=== PATIENT | male | born 1950 | race Caucasian/White ===

== ENCOUNTER 2020-03-31 14:46 | Emergency (ER) | payer OTHER, SELFPAY ==
[2020-03-31] VITALS (10 sets, daily range): BP systolic 148–208; BP diastolic 69–106; PULSE 45–61; RESP 14–24; TEMP 36.7; O2SAT 97–99; BMI 35.7
--- NOTE | 2020-03-31 15:15 | DI.CT.S_ITS ---
PROCEDURE: CT HEAD/BRAIN WO CON INDICATIONS: htnsive, headache TECHNIQUE: Noncontrast 4.5 mm thick angled axial sections acquired from the foramen magnum to the vertex, with coronal and sagittal reformats. For radiation dose reduction, the following was used: automated exposure control, adjustment of mA and/or kV according to patient size. COMPARISON: None. FINDINGS: Image quality: Excellent. CSF spaces: Basal cisterns are patent. No extra-axial fluid collections. The ventricles are symmetric in size and shape. Brain: No intracranial bleeds or masses. There is cerebral volume loss for age, with resultant ventricular and sulcal prominence. There are periventricular and deep white matter chronic small vessel ischemic changes. There is intracranial internal carotid artery atherosclerosis. Skull and face: Calvarium and visualized facial bones appear intact, without suspicious lesions. Sinuses: Complete opacification of the left maxillary sinus. Visualized sinuses and mastoids are otherwise clear. IMPRESSION: 1. No acute process. 2. Volume loss and small vessel ischemic disease. 3. Left maxillary sinus disease. Dictated by: Дмитрий Meek M.D. on 03/31/2020 at 15:49 Approved by: Дмитрий Meek M.D. on 03/31/2020 at 15:49
--- NOTE | 2020-03-31 15:15 | DI.RAD.S_ITS ---
PROCEDURE: XR CHEST 1V INDICATIONS: chest pain, htn TECHNIQUE: One view of the chest was acquired. COMPARISON: None. FINDINGS: Surgical changes and devices: None. Lungs and pleura: Lungs are clear. No pleural effusions or pneumothorax. Mediastinum: Mediastinal contours appear normal. Heart size is normal. Bones and chest wall: No suspicious bony lesions. Overlying soft tissues appear unremarkable. IMPRESSION: No acute process. Dictated by: Дмитрий Meek M.D. on 03/31/2020 at 15:46 Approved by: Дмитрий Meek M.D. on 03/31/2020 at 15:46
[2020-03-31] MEDS: SODIUM CHLORIDE 0.9% 1,000 ML 150 ML IV (15:21)
[2020-03-31 15:26] LABS: Add Manual Diff / Slide Review NO; Basophils Absolute Auto 100 /uL (0-100); Eosinophils Absolute Auto 400 /uL (0-450); Eosinophils Percent Auto 3.7 % (2-4); Hematocrit 48.4 % (41-53); Hemoglobin 16.9 g/dL (13.5-17.5); Lymphocytes Absolute Auto 2900 /uL (1100-4500); Lymphocytes Percent Auto 26.6 % (25-40); Mean Corpuscular Hemoglobin 33.3 PG (26-34); Mean Corpuscular Volume 95.1 fL (80-100); Monocytes Absolute Auto 1100 /uL (0-900); Monocytes Percent Auto 10.2 % (3-14); Neutrophils Absolute Auto 6300 /uL (1500-7000); Neutrophils Percent Auto 58.5 % (50-75); Platelet Count 216 X10^3/uL (150-400); Prothrombin Time 11.1 SECONDS (10.1-12.7); Red Blood Cell Count 5.09 X10^6/uL (4.5-5.9); Red Cell Distribution Width 13.2 % (11.6-14.8); White Blood Cell Count 10.8 X10^3/uL (4.5-11.0)
[2020-03-31 15:29] LABS: PTT Partial Thromboplastin Tim 31 SECONDS (26.4-36.2)
[2020-03-31 15:31] LABS: Alanine Aminotransferase 104 IU/L (<50); Albumin 4.5 g/dL (3.5-5.0); Albumin Globulin Ratio 1.3 (1.0-2.8); Alkaline Phosphatase 67 U/L (38-126); Aspartate Aminotransferase 68 IU/L (17-59); BUN Creatinine Ratio 17.1 (6-22); Bilirubin Total 1.1 mg/dL (0.2-1.3); Blood Urea Nitrogen 18 mg/dL (9-20); Calcium 9.6 mg/dL (8.4-10.2); Carbon Dioxide 33 mmol/L (22-32); Chloride 99 mmol/L (98-107); Creatine Kinase 63 U/L (55-170); Estimated Glomerular Filt Rate > 60.0 mL/min (>60); Globulin 3.4 g/dL (1.7-4.1); Glucose 145 mg/dL (80-110); Lipase 100 U/L (23-300); Potassium 4.3 mmol/L (3.4-5.1); Sodium 137 mmol/L (137-145); Total Protein 7.9 g/dL (6.3-8.2)
--- NOTE | 2020-03-31 15:31 | ED.GENADULT ---
HPI - General Adult <BENITEZ Gonzales - Last Filed: 03/31/20 18:29> General Chief complaint: Hypertension Stated complaint: elevated BP Time Seen by Provider: 03/31/20 14:58 Source: patient Mode of arrival: Ambulatory Limitations: no limitations History of Present Illness HPI narrative: The patient is a 69-year-old male current smoker with history of hypertension and prediabetes who presents with a chief complaint of elevated blood pressure. He states he has a history of high blood pressure, which checking his blood pressure at his pharmacy and it was noted to be elevated. Then he went to the walk-in clinic with a checked in as well and he was sent to the emergency department due to elevated blood pressure. He denies any chest pain or shortness of breath. He does endorse headache, but states that might be is chronic headache. He states he is very worried about this. He states he takes multiple Tylenol per day for his headache. He has seen pain management prior. He does states that he occasionally has ?twinges of chest pain, but does not have any today, and walked up 6 flights of stairs earlier today with no twinges of chest pain. He states he has had these twinges of chest pain for over 40 years. He denies any falls or trauma. He states that he is taking his medications per his primary care provider's instructions. He states he is taking losartan, nadolol, and triamterene hydrochlorothiazide. Related Data Home Medications Medication Instructions Recorded Confirmed diphenhydramine HCl 25 mg capsule 25 mg PO BEDTIME PRN 06/07/18 06/07/18 doxylamine succinate 25 mg tablet 25 mg PO BEDTIME PRN 06/07/18 06/07/18 losartan 50 mg tablet 50 mg PO DAILY 06/07/18 06/07/18 nadolol 20 mg tablet 20 mg PO DAILY 06/07/18 06/07/18 triamterene 37.5 1 tab PO DAILY 06/07/18 06/07/18 mg-hydrochlorothiazide 25 mg tablet Allergies Allergy/AdvReac Type Severity Reaction Status Date / Time No Known Drug Allergies Allergy Verified 03/31/20 14:55 Review of Systems <BENITEZ Gonzales - Last Filed: 03/31/20 18:29> Review of Systems Narrative: GENERAL: Denies chills, fatigue, malaise, fever, sweats. HEENT: Denies sinus pain, ear pain, sore throat, difficulty swallowing, dizziness. RESPIRATORY: Denies dyspnea, cough, wheezing, hemoptysis, sputum. CARDIOVASCULAR: Denies chest pain, palpitations, orthopnea, edema, GASTROINTESTINAL: Denies nausea, vomiting, abdominal pain, diarrhea, constipation, melena. : Denies dysuria, frequency, incontinence, hematuria, urinary retention. MUSCULOSKELETAL: denies weakness, joint pain, or bony pain SKIN: Denies rash, skin lesions, or other NEUROLOGIC: See HPI PSYCHIATRIC: No concerning psychosocial issues. 12 point review of systems is negative except for those stated above Patient History <PERRI Gonzales - Last Filed: 03/31/20 18:29> Social History Smoking Status: Current every day smoker Smoking Status: Current every day smoker alcohol intake frequency: a few times a month Substance Use Type: marijuana Exam <[facility] - Last Filed: 03/31/20 18:29> Narrative Exam Narrative: GENERAL: This is a well-nourished, well-developed patient, in no acute distress HEAD: Atraumatic. Normocephalic. No temporal or scalp tenderness. EYES: Pupils equal round and reactive. Extraocular motions intact. No scleral icterus. No injection or drainage. ENT: Nose without bleeding, purulent drainage or septal hematoma. Throat without erythema, tonsillar hypertrophy or exudate. Uvula midline. Airway patent. NECK: Trachea midline. No JVD or lymphadenopathy. Supple, nontender, no meningeal signs. CARDIOVASCULAR: Regular rate and rhythm RESPIRATORY: Clear to auscultation. Breath sounds equal bilaterally. No wheezes, rales, or rhonchi. No cough. No increased respiratory effort for no accessory muscle use. GASTROINTESTINAL: Abdomen soft, non-tender, nondistended. No hepato-splenomegaly, or palpable masses. No guarding. EXTREMITIES: No clubbing, cyanosis, or edema. No joint tenderness, effusion, or edema noted. BACK: Nontender without deformity or crepitance. No flank tenderness. NEURO: AOx3. Interactive. Age appropriate. Using all extremities equally. No gross cranial nerve deficit. SKIN: No rash or erythema on visible skin Initial Vital Signs Initial Vital Signs: Vital Signs Temperature 98.0 F 03/31/20 14:50 Pulse Rate 59 L 03/31/20 14:50 Respiratory Rate 15 03/31/20 14:50 Blood Pressure 208/106 H 03/31/20 14:50 Pulse Oximetry 99 03/31/20 14:50 <Miryam Cárdenas DO - Last Filed: 04/01/20 17:08> Initial Vital Signs Initial Vital Signs: Vital Signs Temperature 98.0 F 03/31/20 14:50 Pulse Rate 59 L 03/31/20 14:50 Respiratory Rate 15 03/31/20 14:50 Blood Pressure 208/106 H 03/31/20 14:50 Pulse Oximetry 99 03/31/20 14:50 Scores <BENITEZ Gonzales - Last Filed: 03/31/20 18:29> GCS [place] coma scale eye opening: Spontaneous [place] coma scale verbal response: Orientated [place] coma scale motor response: Obey commands Scooter coma scale total score: 15 Course <BENITEZ Gonzales - Last Filed: 03/31/20 18:29> Orders Ordered: Discontinued Medications Sodium Chloride (Normal Saline 0.9%) 1,000 mls @ 150 mls/hr IV CONT KENYATTA Last Infusion: 03/31/20 19:23 Dose: 0 mls/hr Documented by: Admin: 03/31/20 15:21 Dose: 150 mls/hr Documented by: MMINOR Vital Signs Vital signs: Vital Signs - 8 hr 03/31/20 14:50 03/31/20 14:53 03/31/20 15:00 Temperature 98.0 F Pulse Rate 59 L 61 56 L Respiratory Rate 15 14 24 Blood Pressure 208/106 H Pulse Oximetry 99 99 98 03/31/20 15:01 03/31/20 15:37 03/31/20 15:48 Temperature Pulse Rate 52 L 50 L 49 L Respiratory Rate 22 17 Blood Pressure 208/94 H 168/79 H Pulse Oximetry 98 98 03/31/20 16:00 03/31/20 16:01 03/31/20 16:30 Temperature Pulse Rate 47 L 48 L 46 L Respiratory Rate 15 18 16 Blood Pressure 151/78 H 149/72 H Pulse Oximetry 98 98 97 03/31/20 17:00 Temperature Pulse Rate 45 L Respiratory Rate 15 Blood Pressure 148/69 H Pulse Oximetry 97 <Miryam Cárdenas DO - Last Filed: 04/01/20 17:08> Orders Ordered: Discontinued Medications Sodium Chloride (Normal Saline 0.9%) 1,000 mls @ 150 mls/hr IV CONT KENYATTA Last Infusion: 03/31/20 19:23 Dose: 0 mls/hr Documented by: Admin: 03/31/20 15:21 Dose: 150 mls/hr Documented by: MMINOR Vital Signs Vital signs: Vital Signs - 8 hr 03/31/20 14:50 03/31/20 14:53 03/31/20 15:00 Temperature 98.0 F Pulse Rate 59 L 61 56 L Respiratory Rate 15 14 24 Blood Pressure 208/106 H Pulse Oximetry 99 99 98 03/31/20 15:01 03/31/20 15:37 03/31/20 15:48 Temperature Pulse Rate 52 L 50 L 49 L Respiratory Rate 22 17 Blood Pressure 208/94 H 168/79 H Pulse Oximetry 98 98 03/31/20 16:00 03/31/20 16:01 03/31/20 16:30 Temperature Pulse Rate 47 L 48 L 46 L Respiratory Rate 15 18 16 Blood Pressure 151/78 H 149/72 H Pulse Oximetry 98 98 97 03/31/20 17:00 Temperature Pulse Rate 45 L Respiratory Rate 15 Blood Pressure 148/69 H Pulse Oximetry 97 Medical Decision Making <DILLAN Gonzales-BC - Last Filed: 03/31/20 18:29> Lab Data Lab results reviewed: Yes I reviewed the patient's lab results. Result diagrams: 03/31/20 14:54 03/31/20 14:54 Labs: Lab Results 03/31/20 03/31/20 03/31/20 Range/Units 14:54 14:54 14:54 WBC 10.8 (4.5-11.0) X10^3/uL RBC 5.09 (4.5-5.9) X10^6/uL Hgb 16.9 (13.5-17.5) g/dL Hct 48.4 (41-53) % MCV 95.1 (80-100) fL MCH 33.3 (26-34) PG MCHC 35.0 (30-36) % RDW 13.2 (11.6-14.8) % Plt Count 216 (150-400) X10^3/uL Neut % (Auto) 58.5 (50-75) % Lymph % (Auto) 26.6 (25-40) % [place] % (Auto) 10.2 (3-14) % Eos % (Auto) 3.7 (2-4) % Baso % (Auto) 1.0 (0-2) % Neut # (Auto) 6300 (7104-9323) /uL Lymph # (Auto) 2900 (8351-3963) /uL [place] # (Auto) 1100 H (0-900) /uL Eos # (Auto) 400 (0-450) /uL Baso # (Auto) 100 (0-100) /uL PT 11.1 (10.1-12.7) SECONDS INR 1.0 (0.9-1.3) APTT 31 (26.4-36.2) SECONDS Sodium 137 (137-145) mmol/L Potassium 4.3 (3.4-5.1) mmol/L Chloride 99 (98-107) mmol/L Carbon Dioxide 33 H (22-32) mmol/L BUN 18 (9-20) mg/dL Creatinine 1.05 (0.66-1.25) mg/dL Estimated GFR > 60.0 (>60) mL/min BUN/Creatinine Ratio 17.1 (6-22) Glucose 145 H (80-110) mg/dL Calcium 9.6 (8.4-10.2) mg/dL Total Bilirubin 1.1 (0.2-1.3) mg/dL AST 68 H (17-59) IU/L ALT 104 H (<50) IU/L Alkaline Phosphatase 67 (38-126) U/L Total Creatine Kinase 63 (55-170) U/L CK-MB (CK-2) TNP CK-MB (CK-2) Rel Index TNP Troponin I < 0.012 (0.01-0.034) ng/mL NT-Pro-B Natriuret Pep 64 (<125) pg/mL Total Protein 7.9 (6.3-8.2) g/dL Albumin 4.5 (3.5-5.0) g/dL Globulin 3.4 (1.7-4.1) g/dL Albumin/Globulin Ratio 1.3 (1.0-2.8) Lipase 100 (23-300) U/L Imaging Data CT scan - head: Radiologist's Impression: [address] [place] [id number] Scan Report Signed Patient: Venancio Rivas [facility]#: [id number] : 9Acct:[id number] Age/Sex: 69 / MDate of Service: 03/31/20 Loc: ED Accession Number: [id number] Procedure: CT head/brain wo con Ordering Provider: Suyapa RedP-BC PROCEDURE: CT HEAD/BRAIN WO CON INDICATIONS: htnsive, headache TECHNIQUE: Noncontrast 4.5 mm thick angled axial sections acquired from the foramen magnum to the vertex, with coronal and sagittal reformats. For radiation dose reduction, the following was used: automated exposure control, adjustment of mA and/or kV according to patient size. COMPARISON: None. FINDINGS: Image quality: Excellent. CSF spaces: Basal cisterns are patent. No extra-axial fluid collections. The ventricles are symmetric in size and shape. Brain: No intracranial bleeds or masses. There is cerebral volume loss for age, with resultant ventricular and sulcal prominence. There are periventricular and deep white matter chronic small vessel ischemic changes. There is intracranial internal carotid artery atherosclerosis. Skull and face: Calvarium and visualized facial bones appear intact, without suspicious lesions. Sinuses: Complete opacification of the left maxillary sinus. Visualized sinuses and mastoids are otherwise clear. IMPRESSION: 1. No acute process. 2. Volume loss and small vessel ischemic disease. 3. Left maxillary sinus disease. Dictated by: Дмитрий Meek M.D. on 03/31/2020 at 15:49 Approved by: Дмитрий Meek M.D. on 03/31/2020 at 15:49 Chest x-ray: Radiologist's Impression: [address] [place] [id number] XRay Report Signed Patient: Venancio Rivas [facility]#: [id number] : 9Acct:[id number] Age/Sex: 69 / MDate of Service: 03/31/20 Loc: ED Accession Number: [id number] Procedure: XR chest 1V Ordering Provider: Suyapa RedP-[facility] PROCEDURE: XR CHEST 1V INDICATIONS: chest pain, htn TECHNIQUE: One view of the chest was acquired. COMPARISON: None. FINDINGS: Surgical changes and devices: None. Lungs and pleura: Lungs are clear. No pleural effusions or pneumothorax. Mediastinum: Mediastinal contours appear normal. Heart size is normal. Bones and chest wall: No suspicious bony lesions. Overlying soft tissues appear unremarkable. IMPRESSION: No acute process. Dictated by: Дмитрий Meek M.D. on 03/31/2020 at 15:46 Approved by: Дмитрий Meek M.D. on 03/31/2020 at 15:46 [facility] Narrative Medical decision making narrative: The patient is a 69-year-old male current smoker presents with a chief complaint of hypertension with systolic over 200. He does have a headache, though notes that he has chronic headaches and this is not unusual for him. However given his blood pressure over 200, head CT was taken to rule out acute intracranial bleed. This came back negative. The patient has a negative troponin, normal renal function. He feels fine and appears well and nontoxic. His blood pressure normalized during his emergency department stay. His wonders if it is because he is eating increasing salty foods including pickles. He is requesting to go home. I discussed at length continuing his antihypertensive regimen set of eyes primary care provider as well as close follow-up with PCP. Discussed at length coming back to ER for acute concerns including chest pain shortness of breath, concern of heart attack or stroke. Patient have no questions upon discharge and state understanding of return precautions as well as follow-up care. <Miryam Cárdenas, DO - Last Filed: 04/01/20 17:08> Lab Data Labs: Lab Results 03/31/20 03/31/20 03/31/20 Range/Units 14:54 14:54 14:54 WBC 10.8 (4.5-11.0) X10^3/uL RBC 5.09 (4.5-5.9) X10^6/uL Hgb 16.9 (13.5-17.5) g/dL Hct 48.4 (41-53) % MCV 95.1 (80-100) fL MCH 33.3 (26-34) PG MCHC 35.0 (30-36) % RDW 13.2 (11.6-14.8) % Plt Count 216 (150-400) X10^3/uL Neut % (Auto) 58.5 (50-75) % Lymph % (Auto) 26.6 (25-40) % [place] % (Auto) 10.2 (3-14) % Eos % (Auto) 3.7 (2-4) % Baso % (Auto) 1.0 (0-2) % Neut # (Auto) 6300 (9876-6364) /uL Lymph # (Auto) 2900 (6118-4926) /uL [place] # (Auto) 1100 H (0-900) /uL Eos # (Auto) 400 (0-450) /uL Baso # (Auto) 100 (0-100) /uL PT 11.1 (10.1-12.7) SECONDS INR 1.0 (0.9-1.3) APTT 31 (26.4-36.2) SECONDS Sodium 137 (137-145) mmol/L Potassium 4.3 (3.4-5.1) mmol/L Chloride 99 (98-107) mmol/L Carbon Dioxide 33 H (22-32) mmol/L BUN 18 (9-20) mg/dL Creatinine 1.05 (0.66-1.25) mg/dL Estimated GFR > 60.0 (>60) mL/min BUN/Creatinine Ratio 17.1 (6-22) Glucose 145 H (80-110) mg/dL Calcium 9.6 (8.4-10.2) mg/dL Total Bilirubin 1.1 (0.2-1.3) mg/dL AST 68 H (17-59) IU/L ALT 104 H (<50) IU/L Alkaline Phosphatase 67 (38-126) U/L Total Creatine Kinase 63 (55-170) U/L CK-MB (CK-2) TNP CK-MB (CK-2) Rel Index TNP Troponin I < 0.012 (0.01-0.034) ng/mL NT-Pro-B Natriuret Pep 64 (<125) pg/mL Total Protein 7.9 (6.3-8.2) g/dL Albumin 4.5 (3.5-5.0) g/dL Globulin 3.4 (1.7-4.1) g/dL Albumin/Globulin Ratio 1.3 (1.0-2.8) Lipase 100 (23-300) U/L Discharge Plan Departure Patient Disposition: Home Clinical Impression: Hypertension Qualifiers: Hypertension type: unspecified Qualified Code(s): I10 - Essential (primary) hypertension Discharge Date/Time: 03/31/20 17:32 Instructions: DASH Diet For a Healthy Blood Pressure, DI for High Blood Pressure Activity Restrictions/Additional Instructions: Thank you for trusting us with your care today. As discussed, your blood pressure came down in the emergency department. Please follow-up with primary care provider. I encouraged monitoring your salt intake over the next few days. Please come back to the emergency department for any acute concerns such as concern of heart attack or stroke. You are doing great work with your blood sugars! Keep up the great work. Today your blood sugar was 145, but this was not fasting. Prescriptions: No Action nadolol 20 mg tablet 20 mg PO DAILY RF: 0 losartan 50 mg tablet 50 mg PO DAILY RF: 0 triamterene-hydrochlorothiazid 37.5-25 mg tablet 1 tab PO DAILY RF: 0 doxylamine succinate 25 mg tablet 25 mg PO BEDTIME PRNRF: 0 diphenhydramine HCl 25 mg capsule 25 mg PO BEDTIME PRNRF: 0 Referrals: Homer Cross MD [Non-Staff] - <Miryam Cárdenas DO - Last Filed: 04/01/20 17:08> Cosign ED Attending Cadyature Attestation: I was immediately available in the department for consultation. Documentation has been reviewed. I agree with assessment and plan.
[2020-03-31 15:36] LABS: HEMOLYSIS 90 (0-50)
[2020-03-31 15:43] LABS: NT-proBNP (BNP-Adult 18+) 64 pg/mL (<125); Troponin I < 0.012 ng/mL (0.01-0.034)
== END 2020-03-31 17:32 | disposition home or self-care (01) ==
PROVIDERS: Emergency Provider Nurse Practitioner Family
DX: I10 Essential (primary) hypertension (principal); R07.9 Chest pain, unspecified; R51.9 Headache, unspecified
CPT/HCPCS: 36415; 70450; 71045; 80053; 82550; 83690; 83880; 84484; 85025; 85610; 85730; 93005; 96360; 96361; 99284

== ENCOUNTER 2023-08-06 22:50 | Emergency (ER) | payer OTHER, SELFPAY ==
[2023-08-06 22:56] VITALS: BP 140/67; PULSE 61; RESP 16; TEMP 36.1; O2SAT 96; BMI 33.9
--- NOTE | 2023-08-06 23:10 | DI.RAD.S_ITS ---
PROCEDURE: XR LUMBAR SPINE 2-3V INDICATIONS: fall with lumbar pain TECHNIQUE: 3 views of the lumbar spine were acquired. COMPARISON: None. FINDINGS: Bones: 5 [id number] vertebrae are present. Trace retrolisthesis L2-3, L3-4, and L5-S1. There is severe L5-S1 disc height loss and moderate multilevel disc height loss elsewhere. There are flowing bridging anterior osteophytes from the lower thoracic spine to L3. Bridging osteophytes throughout the lower thoracic and upper lumbar spinous processes.. No acute vertebral body compression fractures. No suspicious bony lesions. Degenerative mixed cystic and sclerotic changes at the pubic symphysis. Soft tissues: Overlying bowel gas pattern is normal. No suspicious soft tissue calcifications. IMPRESSION: No acute vertebral body fracture. Osteophytosis and partial ankylosis in the lower thoracic and upper lumbar spine. Degenerative disc height loss at L5-S1. Dictated by: Samara Shelton M.D. on 08/07/2023 at 0:46 Approved by: Samara Shelton M.D. on 08/07/2023 at 0:49
[2023-08-06 23:11] VITALS: PULSE 60; O2SAT 95
[2023-08-06 23:30] VITALS: PULSE 59; O2SAT 96
--- NOTE | 2023-08-06 23:53 | ED_ITS ---
HPI - Back Pain/Injury General Chief Complaint: Back Pain/Injury Stated Complaint: glf Time Seen by Provider: 08/06/23 23:01 Source: patient and EMS History of Present Illness HPI Narrative: Patient is a 72-year-old male history of hyperlipidemia, BPH, hypertension presenting today with back pain after injury. He reports that he was at a grandchild's recital he was wearing Crocs when he slipped on coffee falling backwards on his back. He did not hit his head or lose consciousness. He is having ongoing lower back pain. He was able to get himself up off the floor. At which time he proceeded to sit for 1 hour through the consult. He was able to walk 2 blocks to the car but it was very slow and painful. He has no numbness or tingling legs. Who apparently was in such severe pain when EMS arrived that he got ketamine and fentanyl. He now says that he is feeling better but is quite afraid to move. Pain is worse on the right than the left Related Data Home Medications Medication Instructions Recorded Confirmed allopurinol 100 mg tablet 100 mg PO DAILY 04/03/23 06/30/23 finasteride 5 mg tablet 5 mg PO DAILY 04/03/23 06/30/23 rosuvastatin 20 mg tablet 20 mg PO DAILY 04/03/23 06/30/23 Previous Rx's Medication Instructions Recorded losartan 100 mg tablet 100 mg PO DAILY blood pressure #90 04/03/23 tabs triamterene 37.5 1 tab PO DAILY #90 tabs 04/03/23 mg-hydrochlorothiazide 25 mg tablet tamsulosin 0.4 mg capsule 0.4 mg PO BEDTIME #90 caps 05/06/23 diazepam 2 mg tablet (Valium) 2 mg PO BID PRN muscle spasm #14 08/07/23 tabs hydrocodone 5 mg-acetaminophen 325 1 tab PO Q6H PRN pain #10 tabs 08/07/23 mg tablet lidocaine 5 % topical patch 1 patch topical DAILY PRN pain 08/07/23 (scale score 1-3) #30 ea Allergies Allergy/AdvReac Type Severity Reaction Status Date / Time No Known Drug Allergies Allergy Verified 04/03/23 13:23 Patient History Medical History History of elevated PSA BPH w urinary obs/LUTS Belle esophagus DARLENE (obstructive sleep apnea) BPH (benign prostatic hyperplasia) Elevated PSA Chronic headache IFG (impaired fasting glucose) Benign essential HTN No active medical problems Social History Smoking Status: Former smoker Smoking Status: Former smoker alcohol intake frequency: a few times a month Substance Use Type: marijuana Exam Initial Vital Signs Initial Vital Signs: Vital Signs Temperature 97 F L 08/06/23 22:56 Pulse Rate 61 08/06/23 22:56 Respiratory Rate 16 08/06/23 22:56 Blood Pressure 140/67 08/06/23 22:56 Pulse Oximetry 96 08/06/23 22:56 Oxygen Delivery Method Room Air 08/06/23 22:56 GENERAL: Alert pleasant well-appearing 72-year-old HEENT: Head atraumatic,EOMI, pupils reactive, face symmetric, moist mucous membranes NECK: Supple no vertebral tenderness CARDIOVASCULAR: Regular rate and rhythm without murmurs, rubs or gallops. RESPIRATORY: Breath sounds equal bilaterally, no wheezes rales or rhonchi. ABDOMEN: Soft, nontender. Normoactive bowel sounds all 4 quadrants. No guarding or rebound. BACK: No real vertebral tenderness or step-off tender more on right lower lumbar, pain with lifting right leg more than left le EXTREMITIES: Normal range of motion, no clubbing or edema. Neurovascularly intact NEUROLOGICAL: Alert and oriented x4. Sensation in lower extremities intact SKIN: Warm, dry, no laceration, no petechiae, no rashes or lesions. Course Orders Ordered: ED Orders 08/06/23 23:10 XR lumbar spine 2-3V Stat Discontinued Medications Hydrocodone Bitart/Acetaminophen (Hydrocodone/Acet 5/325 Prepack) 1 bottle MISC DIRECTED ONE Stop: 08/07/23 01:02 Last Admin: 08/07/23 01:10 Dose: 1 bottle Documented By: ROCÍO Diazepam (Diazepam 5 Mg Tablet) 5 mg PO NOW ONE Stop: 08/07/23 01:02 Last Admin: 08/07/23 01:10 Dose: 5 mg Documented By: ROCÍO Hydromorphone HCl (Hydromorphone 0.5 Mg Inj) 0.5 mg IV NOW ONE Stop: 08/07/23 01:02 Last Admin: 08/07/23 01:10 Dose: 0.5 mg Documented By: ROCÍO Ketorolac Tromethamine (Ketorolac 30 Mg/Ml Vial) 15 mg IV NOW ONE Stop: 08/07/23 00:14 Last Admin: 08/07/23 00:22 Dose: 15 mg Documented By: ROCÍO Lidocaine (Lidocaine 5% Patch) 1 each TOP NOW ONE Stop: 08/07/23 01:02 Last Admin: 08/07/23 01:10 Dose: 1 each Documented By: ROCÍO Morphine Sulfate (Morphine 2 Mg/Ml Inj) 2 mg IV NOW ONE Stop: 08/07/23 00:14 Last Admin: 08/07/23 00:23 Dose: 2 mg Documented By: ROCÍO Vital Signs Vital signs: Vital Signs - 8 hr 08/06/23 22:56 08/06/23 23:11 08/06/23 23:30 Temperature 97 F L Pulse Rate 61 60 59 L Respiratory Rate 16 Blood Pressure 140/67 Pulse Oximetry 96 95 96 Oxygen Delivery Method Room Air Room Air Room Air 08/07/23 00:00 08/07/23 00:21 08/07/23 00:22 Temperature Pulse Rate 58 L 61 Respiratory Rate Blood Pressure 131/58 L Pulse Oximetry 97 97 Oxygen Delivery Method Room Air 08/07/23 00:22 08/07/23 00:30 08/07/23 00:30 Temperature Pulse Rate 60 57 L Respiratory Rate Blood Pressure 116/58 L Pulse Oximetry 96 96 Oxygen Delivery Method Room Air 08/07/23 01:47 Temperature Pulse Rate 57 L Respiratory Rate 18 Blood Pressure 144/75 H Pulse Oximetry 98 Oxygen Delivery Method Room Air MDM - Back Pain/Injury Imaging Data Extremity x-ray #1: Radiologist's Impression: PROCEDURE: XR LUMBAR SPINE 2-3V INDICATIONS: fall with lumbar pain TECHNIQUE: 3 views of the lumbar spine were acquired. COMPARISON: None. FINDINGS: Bones: 5 [id number] vertebrae are present. Trace retrolisthesis L2-3, L3- 4, and L5-S1. There is severe L5-S1 disc height loss and moderate multilevel disc height loss elsewhere. There are flowing bridging anterior osteophytes from the lower thoracic spine to L3. Bridging osteophytes throughout the lower thoracic and upper lumbar spinous processes.. No acute vertebral body compression fractures. No suspicious bony lesions. Degenerative mixed cystic and sclerotic changes at the pubic symphysis. Soft tissues: Overlying bowel gas pattern is normal. No suspicious soft tissue calcifications. IMPRESSION: No acute vertebral body fracture. Osteophytosis and partial ankylosis in the lower thoracic and upper lumbar spine. Degenerative disc height loss at L5-S1. Dictated by: Samara Shelton M.D. on 08/07/2023 at 0:46 MDM Narrative Medical decision making narrative: Patient is a healthy 72-year-old male who presents today with back pain after a mechanical fall. No head injury. He was ambulatory after the fall but did sit for long period of time immediately following the fall. Pain has progressively gotten worse. He did receive morphine and Toradol here in the ED he was able to sit up off the bed. X-ray is negative he is neurologically intact. He reports that he is going to need something else for pain. He is given Dilaudid Toradol Valium and lidocaine patch. Discussed with him at length that he will need increase his activity as tolerated that he will continue to have pain. He overall does not appear to be in severe pain. He is given multiple medications here in the ED. he has offered a walker but declined. He has no neurologic deficits no loss of bowel or bladder. X-ray has been reviewed by me and Radiology and no fracture. He is really tender right lower lumbar area not really over the vertebral tenderness at all. He has not tender in his hip. At this time I believe this to be muscle related injury not a bony or neurologic injury. He has no signs or symptoms of cauda equina. He is able to move that right leg. Discharge Plan Departure Patient Disposition: Home Clinical Impression: Back muscle spasm Instructions: DI for Back Spasm Activity Restrictions/Additional Instructions: *You have been diagnosed with back spasm *What to do: At this time you likely have a pretty severe back spasm. Your x- ray was read as negative you are not tender over the bone. This can take time. Recommend light stretching and low temperature heating pad. Light activity is encouraged. *Continue to take medications as directed Tecate 1 tablet every 6 hours if needed for severe pain Valium 2 mg every 12 hours only if needed for muscle spasm Lidocaine patch only for 12 hours then remove if needed Ibuprofen 600 mg every 6 hours for [id number] pain *Follow up with your primary care provider in 2-3 days or call [phone] *Return to ER if you should have increasing pain numbness tingling weakness or any new, worsening or concerning symptoms CONTROLLED SUBSTANCE DISCHARGE (Narcotoic/benzodiazepine/Flexeril/Phenergan) 1. You have been prescribed narcotic medications, it does have acetaminophen/Tylenol/paracetamol in it, DO NOT TAKE MORE THAN 4,00mg in 24 hours of Tylenol. TRAMADOL DOES NOT CONTAIN TYLENOL 2. Please understand that we cannot provide further refills of narcotics, benzodiazepines or controlled substances through the ED and her pain management will need to be through your provider. 3. While on these medications you cannot drive or operate heavy machinery. 4. You cannot sign legal documents or perform any duties such as this. 5. As long as you're taking opiate pain medications he should also be taking a stool softener such as Colace, Dulcolax, MiraLAX or prune juice, to help avoid constipation. Prescriptions: New hydrocodone-acetaminophen 5-325 mg tablet 1 tab PO Q6H PRN (Reason: pain) Qty: 10 0RF diazepam [Valium] 2 mg tablet 2 mg PO BID PRN (Reason: muscle spasm) Qty: 14 0RF lidocaine 5 % adhesive patch,medicated 1 patch topical DAILY PRN (Reason: pain (scale score 1-3)) Qty: 30 0RF Rx Instructions: leave on most painful area for up to 12 hrs No Action rosuvastatin 20 mg tablet 20 mg PO DAILY allopurinol 100 mg tablet 100 mg PO DAILY finasteride 5 mg tablet 5 mg PO DAILY losartan 100 mg tablet 100 mg PO DAILY Qty: 90 3RF triamterene-hydrochlorothiazid 37.5-25 mg tablet 1 tab PO DAILY Qty: 90 3RF tamsulosin 0.4 mg capsule 0.4 mg PO BEDTIME Qty: 90 3RF Referrals: Tam Roque DO [Primary Care Provider] - Stand Alone Forms: Patient Portal/API
[2023-08-07] VITALS: PULSE 58; O2SAT 97
[2023-08-07 00:21] VITALS: PULSE 61; O2SAT 97
[2023-08-07 00:22] VITALS: BP 131/58; PULSE 60; O2SAT 96
[2023-08-07] MEDS: KETOROLAC 30 MG/ML VIAL 15 MG IV (00:22)
[2023-08-07] MEDS: MORPHINE 2 MG/ML INJ IV (00:23)
[2023-08-07 00:30] VITALS: BP 116/58; PULSE 57; O2SAT 96
--- NOTE | 2023-08-07 01:01 | PC.NURSE ---
Pt able to stand next to bed but says he unable to walk. MD Cárdenas at bedside.
[2023-08-07] MEDS: HYDROCODONE/ACET 5/325 PREPACK 1 BOTTLE MISC (01:10)
[2023-08-07] MEDS: diazePAM 5 MG TABLET PO (01:10)
[2023-08-07] MEDS: LIDOCAINE 5% PATCH 1 EACH TOP (01:10)
[2023-08-07] MEDS: HYDROMORPHONE 0.5 MG INJ IV (01:10)
[2023-08-07 01:47] VITALS: BP 144/75; PULSE 57; RESP 18; O2SAT 98
== END 2023-08-07 01:50 | disposition home or self-care (01) ==
PROVIDERS: Emergency Provider Emergency Medicine; PCP Family Medicine
DX: M62.830 Muscle spasm of back (principal); M54.50 Low back pain, unspecified; W01.0XXA Fall on same level from slipping, tripping and stumbling without subsequent striking against object, initial encounter
CPT/HCPCS: 72100; 96374; 96375; 99284; J1170; J1885; J2270

== ENCOUNTER → 2024-07-12 15:15 | Outpatient (CLI) | payer OTHER, SELFPAY ==
--- NOTE | 2024-07-12 15:17 | DI.MRI.S_ITS ---
PROCEDURE: MR PELVIC PROSTATE PROTOCOL INDICATIONS: 73 y/o M w/ elevated PSA, please eval for PIRADS lesions TECHNIQUE: Coronal HASTE, axial T1 FSE with fat saturation, 3-plane nonbreath-hold T2 FSE. After the administration of contrast, dynamic axial, delayed axial and coronal VIBE or 2-D FLASH with fat saturation through the pelvis. Diffusion weighted imaging and ADC was performed. COMPARISON: None. FINDINGS: Image quality: Diffusion weighted and dynamic contrast enhanced images are diagnostic. Prostate: Gland size is 4.7 x 4.4 x 4 cm; ellipsoid gland volume is 43 mL. Numerous BPH nodules. No significant intrinsic T1 hyperintense foci to suggest hemorrhage. Lesion 1: Location: Left apex peripheral zone Size: 1.1 x 0.9 cm, (4/16) T2W signal: Hypointense. DWI signal: Mildly hyperintense. ADC signal: Markedly hypointense. Enhancement: Yes. Extracapsular extension: No. No neurovascular involvement. PI-RADS score: 4 Lesion 2: Location: Left apex transitional zone Size: 1 x 1 cm, (/) T2W signal: Hypointense. DWI signal: Heterogeneous ADC signal: Mildly hypointense. Enhancement: Yes. Extracapsular extension: No. No neurovascular involvement. PI-RADS score: 4 Genitourinary system: Bladder wall thickness is normal. Distal ureters are non distended. Bowel and peritoneum: No pathologic free pelvic fluid. Inferior colon and small bowel loops are normal in caliber. Nodes and vessels: No pelvic or inguinal adenopathy by size criteria. Iliac vessels are normal in caliber. Soft tissues: No inguinal hernias. Bones: Marrow demonstrates normal overall signal, without lesions to suggest metastases. IMPRESSION: 1. Prominent prostate gland with multiple BPH nodules. 2. Left apex peripheral zone observation measuring 1.1 cm. PI-RADS 4. 3. Left apex transitional zone observation measuring 1 cm. PI-RADS 4. 4. No enlarged lymph nodes. Dictated by: David Gallegos M.D. on 07/13/2024 at 8:31 Approved by: David Gallegos M.D. on 07/13/2024 at 8:43
== END ==
PROVIDERS: PCP Internal Medicine; Referring Provider Urology; Visit Provider Urology
DX: N40.2 Nodular prostate without lower urinary tract symptoms (principal); R97.20 Elevated prostate specific antigen [PSA]
CPT/HCPCS: 72197; A9579

== ENCOUNTER → 2024-08-11 13:41 | Outpatient (CLI) | payer OTHER, SELFPAY ==
--- NOTE | 2024-08-11 13:42 | DI.CT.S_ITS ---
PROCEDURE: CT CHEST ABD PEL W CON INDICATIONS: evaluate for prostate cancer TECHNIQUE: After the administration of intravenous contrast, 5 mm thick sections acquired from the lung apices to the symphysis. 5 mm coronal and sagittal reformats were performed, with additional 7 mm MIP reformats through the lungs. For radiation dose reduction, the following was used: automated exposure control, adjustment of mA and/or kV according to patient size. COMPARISON: None. FINDINGS: Image quality: Excellent. CHEST: Lower Neck: No enlarged lymph nodes. Thyroid: No thyroid nodules which require sonographic follow up, per consensus guidelines. Axillae: No enlarged lymph nodes. Chest Wall: Unremarkable. Lungs and Pleura: No pneumothorax or pleural effusions. Calcified granuloma. Heart: Heart size is normal. No pericardial effusion. Thoracic Vessels: The aorta and pulmonary arteries demonstrate normal size. Mediastinum and Jess: No enlarged lymph nodes. Esophagus: No wall thickening. No hiatal hernia. ABDOMEN: Liver: No solid mass. Gallbladder: No radiopaque gallstones or wall thickening. Biliary ducts: No biliary dilation. Pancreas: No ductal dilation. Spleen: Size is within normal limits. Adrenal Glands: Bilateral adrenal nodules; left measures 2.4 centimeters and right measures 1.1 centimeter. Kidneys and Ureters: No hydronephrosis. No solid mass. No complex renal cystic lesion which requires follow up. Stomach and Bowel: Normal colonic caliber, without significant wall thickening. Colonic diverticulosis without evidence of diverticulitis. Peritoneum: No abnormal intraperitoneal fluid. No free air. Ventral Wall: No significant ventral hernia. Abdominal Nodes: No retroperitoneal or mesenteric adenopathy by size criteria. Vessels: Aorta and inferior vena cava are normal in size. PELVIS: Pelvic Organs: Enhancing focus in the left peripheral zone of the apex, corresponding to suspicious observation recent MRI. Bladder: No bladder wall thickening, accounting for underdistention. Pelvic Nodes: No enlarged lymph nodes. Miscellaneous: Left inguinal hernia repair without recurrence. Bones: No aggressive osseous abnormality. Diffuse idiopathic skeletal hyperostosis. IMPRESSION: Enhancing focus in the left peripheral zone of the prostate apex, likely representing primary malignancy. No evidence of metastatic disease. Bilateral adrenal nodules with indeterminate attenuation. These are probably incidental adenomas. Recommend dedicated CT or MRI for characterization (adrenal mass protocol). Dictated by: Bill Amanda M.D. on 08/11/2024 at 16:02 Approved by: Bill Amanda M.D. on 08/11/2024 at 16:06
[2024-08-11 14:14] LABS: Estimated Glomerular Filt Rate 54 mL/min (>60)
== END ==
PROVIDERS: PCP Internal Medicine; Referring Provider Urology; Visit Provider Urology
DX: C61 Malignant neoplasm of prostate (principal); E27.9 Disorder of adrenal gland, unspecified; K57.90 Diverticulosis of intestine, part unspecified, without perforation or abscess without bleeding
CPT/HCPCS: 36415; 71260; 74177; 82565; Q9967

== ENCOUNTER → 2024-09-09 16:18 | Outpatient (CLI) | payer OTHER, SELFPAY | PROVIDERS: PCP Internal Medicine; Visit Provider Urology | DX: N40.1 Benign prostatic hyperplasia with lower urinary tract symptoms (principal) | CPT/HCPCS: 87086 ==

== ENCOUNTER → 2024-10-06 09:42 | Outpatient (CLI) | payer OTHER, SELFPAY | PROVIDERS: PCP Internal Medicine; Visit Provider Urology | DX: N40.1 Benign prostatic hyperplasia with lower urinary tract symptoms (principal); N13.8 Other obstructive and reflux uropathy | CPT/HCPCS: 87086 ==

== ENCOUNTER 2024-10-18 18:32 | Inpatient (IN) | payer OTHER, SELFPAY ==
[2024-10-12 12:03] VITALS: BMI 34.1
[2024-10-18] VITALS (8 sets, daily range): BP systolic 149–177; BP diastolic 80–96; PULSE 64–99; RESP 15–18; TEMP 36.1–36.7; O2SAT 93–100; BMI 33.9
--- NOTE | 2024-10-18 | PATH_ITS ---
[facility] Accession Number: [id number] No. of containers..02 Tissue . 01 Material submitted: . PART A: prostate - PROSTATE AND SEMINAL VESICLES PART B: PELVIC - PELVIC LYMPH NODES . 01 Diagnosis: A. PROSTATE AND SEMINAL VESICLES, RADICAL PROSTATECTOMY: Prostate size, weight: 48 grams, 5.3 x 4.0 x 3.7 cm. Tumor: Histologic type: Acinar adenocarcinoma, conventional (usual) type. Histologic grade: Grade group: 3 ([place] score 4+3=7), percentage of pattern 4 less than 61%. Intraductal carcinoma: Not identified. Cribriform glands: Present. Treatment effect: No known presurgical therapy. Tumor quantitation: 11-20%. Extraprostatic extension: Present, focal, see microscopic description. -Location of extraprostatic extension: Left posterior. Urinary bladder neck invasion: Not identified. Seminal vesicle invasion: Not identified. Lymphatic and/or vascular invasion: Not identified. Perineural invasion: Present. Surgical margins: Invasive carcinoma is present at a cauterized left apical margin, with a linear length involved by carcinoma 2.5 to 3 mm, and [place] pattern 3. Please see microscopic description. Remaining margins are not involved. Regional lymph nodes, please see part B, pelvic lymph nodes. . Pathologic staging: pT2. . B. PELVIC LYMPH NODES, EXCISION: Five benign lymph nodes (0/5). Negative for metastatic carcinoma. Please see microscopic description. . Pathologic staging: pN0. V 10/26/2024 1511 Local . 01 Comment: As part of ongoing air quality instrument specialist, selected slides (A2, A3) and immunohistochemistry are reviewed by Dr. Tori Pfeiffer who agrees with the findings. . 01 Electronically signed: . Abelardo Fitzpatrick MD, Pathologist NPI- [id number] . 01 Gross description: . A. Received in formalin with two identifiers and prostate and seminal vesicles, is a slightly irregularly-shaped radical prostatectomy with one attached seminal vesicle and one detached seminal vesicle with a combined weight of 48 grams and measuring 4.0 cm from superior to inferior, 5.3 cm from medial to lateral, 3.7 cm anterior to posterior with presumed orientation. The presumed left attached seminal vesicle and vas deferens measures 4.3 x 1.5 x 1.5 cm while the detached seminal vesicle and vas deferens measures 3.5 x 1.4 x 1.0 cm. The external surface of the specimen is relatively smooth on the posterior aspect while the remaining margins are diffusely roughened with cautery artifacts. The right anterior margin is inked blue. The left anterior margin is inked green. The posterior surface is inked black. The detached seminal vesicle is inked orange. The urethral meatus is probe patent. The specimen is serially sectioned from apex to base into seven slices with a diffusely pink-donahue, nodular cut surface. No distinct masses are grossly identified. Package Lift Operator sections are submitted as follows: A1: Slice 1, right apex margin perpendicular. A2: Slice 1, left apex margin perpendicular. A3-A4: Composite slice 2. A5-A8: Composite slice 3. A9-A12: Composite slice 4. A13-A16: Composite slice 5. A17-A20: Composite slice 6. A21-A22: Right base margin perpendicular. A23-A24: Left base margin perpendicular. A25: Detached presumed right seminal vesicle and approximate perpendicular insertion of right seminal vesicle. A26: Left seminal vesicle to include perpendicular insertion. B. Received in formalin with two identifiers and pelvic lymph nodes, are multiple fragments of yellow lobulated adipose tissue aggregating to 5.5 x 5.3 x 1.6 cm. Palpation reveals five donahue lymph node candidates ranging from 1.2 x 0.5 x 0.5 cm to 3.2 x 1.6 x 1.1 cm. The lymph node candidates are submitted as follows: B1: Single inked bisected lymph node candidate. B2-B3: One lymph node sectioned. B4: One lymph node sectioned. B5: One lymph node sectioned. B6: One lymph node sectioned. ([id number]) /JOHN 10/26/2024 1511 Local . 01 Microscopic: . A. Examination of the left apex (block A2) reveals invasive tumor at a cauterized margin. To better evaluate this area, multiple deeper levels and high molecular weight cytokeratin/p63 immunostain are performed. . The morphology and immunohistochemistry supports the morphologic impression of involvement of a cauterized margin by invasive carcinoma, at an area measuring 2.5 to 3 mm, with [place] pattern 3. . In addition, to better evaluate an area where invasive glands are worrisome for focal extraprostatic extension, deeper levels and high molecular weight cytokeratin/p63 immunostain are performed. The morphology and immunohistochemistry supports the morphologic impression of focal extraprostatic extension, as tumor is noted within the connective tissue in the plane of fat, involving 1 high-power field in this section (block A3), overall supporting focal extraprostatic extension on the left posterior region (A3). . B. MANISHA immunostain is performed on blocks B1, B4, B5 and B6, and is negative for metastatic carcinoma, supporting the diagnosis. . * This test was developed and the performance characteristics were validated by [facility]. It has not been cleared or approved by the U.S. Food and Drug Administration. . 01 Pathologist provided ICD-10: C61 . 01 CPT . 204667, 918103, N37337, [id number] Performed at: [address] [facility] [address], [place], [place] [id number] MD Franco Lara MD Phone: [phone]
[2024-10-18] MEDS: ACETAMINOPHEN 325 MG TABLET 975 MG PO (07:10)
[2024-10-18 07:15] LABS: Hematocrit 48.4 % (41-53); Hemoglobin 16.4 g/dL (13.5-17.5); Mean Corpuscular HGB Conc 33.9 % (30-36); Mean Corpuscular Hemoglobin 32.1 PG (26-34); Mean Corpuscular Volume 94.8 fL (80-100); Platelet Count 136 X10^3/uL (150-400); Red Blood Cell Count 5.11 X10^6/uL (4.5-5.9); Red Cell Distribution Width 13.4 % (11.6-14.8); White Blood Cell Count 7.3 X10^3/uL (4.5-11.0)
--- NOTE | 2024-10-18 07:25 | PM.PREOP ---
Pre-operative Note COVID-19 COVID-19 status: Not tested Interval Note History & Physical reviewed/Exam performed by Physician: Yes Changes to H&P: No
[2024-10-18] MEDS: LACTATED RINGERS 1,000 ML 21 ML IV ×2 (07:28→12:44)
[2024-10-18 07:31] LABS: BUN Creatinine Ratio 13.4 (6-22); Blood Urea Nitrogen 16 mg/dL (9-20); Calcium 9.5 mg/dL (8.4-10.2); Carbon Dioxide 25 mmol/L (22-32); Chloride 103 mmol/L (98-107); Estimated Glomerular Filt Rate > 60 mL/min (>60); Glucose 107 mg/dL (70-99); HEMOLYSIS 39 (0-50); Potassium 3.7 mmol/L (3.4-5.1); Sodium 138 mmol/L (137-145)
[2024-10-18] MEDS: CEFAZOLIN 2 GM/100 ML PREMIX 100 ML IV ×3 (08:23→16:16)
--- NOTE | 2024-10-18 08:51 | SUR.OPER ---
Supine on padded OR bed with pink pads, head on pillow, arms padded and tucked, legs uncrossed, safety belt at thigh, tape over blanket over lower legs. Safety straps applied across torso. Pillow placed under knees. Facial pad placed over pt face per anesthesia for protection. Dr. May in room at time of positioning, all pressure points covered and MD approved.
--- NOTE | 2024-10-18 09:18 | SUR.OPER ---
Attempted to call patient contact, Natali, for update. No answer at this time.
[2024-10-18] MEDS: BUPIVACAINE 0.5% (PF) 30 ML VIAL INJ (09:22)
--- NOTE | 2024-10-18 09:27 | SUR.OPER ---
Updated patient contact, Natali.
--- NOTE | 2024-10-18 12:46 | SUR.OPER ---
patient's contact, Natali, updated and contacted at this time.
[2024-10-18] MEDS: metroNIDAZOLE 500 MG/100 ML PIGGYBACK 100 MG IV (13:49)
--- NOTE | 2024-10-18 14:18 | SUR.OPER ---
Dr. May out of room talking to family, Dr. Perez in room at console.
[2024-10-18] MEDS: ACETAMINOPHEN IV 1,000 MG/100 ML VIAL 400 MG IV (16:21)
--- NOTE | 2024-10-18 17:30 | SUR.OPER ---
illeostomy in lower portion Right Upper Quadrant
--- NOTE | 2024-10-18 18:31 | PM.OP.1 ---
Operative Date/Time/Diagnoses Date of procedure: 10/18/24 Time of procedure: 18:31 Pre-op diagnosis: Rectal injury Post-op diagnosis: same Procedure & Clinicians Procedure: Robotic primary repair of distal rectal injury Rigid proctoscopy Diverting loop ileostomy Same procedure as scheduled: No Surgeon: Parmjit Perez Click Yes if Unassisted: Yes Anesthesia Type: General Operative Notes Findings: Roughly 2 cm full-thickness tear of the anterior distal rectum Estimated Blood Loss (mL): 20 Procedure in detail: The patient is a 73-year-old man who was undergoing a robotic prostatectomy by Dr. May. See the operative note from Dr. May for details. I was called emergency to the operating room by Dr. May for rectal injury sustained during a robotic prostatectomy. I took over at the console of the robot and examined the injury. It appeared to be a full-thickness laceration of the anterior portion of the distal rectum. It was a proximally transverse in orientation however towards the right side it curved cephalad. I brought in Ray-Dee to help staunch some of the bleeding from the prostatectomy dissection above so that I could clearly see the extent of the laceration. There was no visible spillage of stool. The patient had been bowel prepped. I closed the injury in 2 layers using a running 4-0 V lock stitch initially followed by multiple interrupted seromuscular sutures using 3-0 silk. Once the repair was complete I filled the pelvis with irrigation, placed the fenestrated bipolar arm gently across the upper rectum with downward pressure to isolate the distal rectum from the rest of the colon and Dr. May took over the console. I then performed a rigid proctoscopy. There was blood in the distal rectum. I could not easily see the injury due to the patient's position on the bed. I then performed a leak test which was negative. Dr. Dyer took over at the console and completed the urologic portion of the procedure. I was then called back once the urologic portion of the procedure was completed. I found the terminal ileum at the ileocecal valve and moved back about 15 cm proximally. I placed a silk stitch through the mesenteric adipose tissue adjacent to the segment of terminal ileum that I wanted to bring up. Next the robot was undocked and the ports were removed. I extended one of the right 8 mm ports medially and excised a disc of skin roughly 2 cm across. I dissected down to the anterior sheath and opened the anterior sheath for 2 cm. I split the rectus muscle fibers bluntly and grasped the posterior sheath with a Viktoria clamp to elevate it. I then divided it between clamps. I swept a finger into the right lower quadrant to like a feel the silk sutures and brought up the loop of terminal ileum. The terminal ileum was opened transversely with cautery and matured in a Lillian fashion. It was then covered with a sterile towel. Next, the umbilical incision was extended to about 3 cm in order to extract the to specimen bags containing prostate tissue, seminal vesicles and lymphatic tissue. Because there had been an umbilical hernia repair in the past and mesh had been divided the fascia was closed with a combination of interrupted 0 Prolene and 0 Vicryl sutures. The left abdominal assist port had a suture placed by Dr. May which I then tied to close the fascia. The rest of the skin incisions were closed with Monocryl. An appliance was applied over the ileostomy. EBL for the gastrointestinal portion of the surgery: 20 mL Complications: none Post-operative Condition: stable Disposition: PACU
--- NOTE | 2024-10-18 18:40 | PM.OP.1 ---
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 Discussed that per AUA guidelines, treatment recommendations include XRT vs a radical prostatectomy. Would not recommend active surveillance given his unfavorable intermediate-risk prostate cancer. Reviewed his Prolaris Biopsy Test report in detail and that if he elected for XRT he would likely require 4-6 months per AUA guidelines despite the fact that his Prolaris Report recommends no ADT. He is not interested in XRT at this time and would strongly prefer management via a RALP. Discussed risks of the procedure to include pain, bleeding, infection, poor cosmesis, erectile dysfunction, stress urinary incontinence, fascial dehiscence, blood transfusion, persistent bladder urinary extravasation requiring prolonged catheter usage and/or placement of bilateral PCN's or an IR drain, injury to either ureteral orifice requiring a ureteral stent or ureteral reimplantation or bilateral PCN's, injury to bowel requiring resection and reanastomosis with the assistance of General Surgery or a colostomy or ileostomy creation with the hopes of being able to reverse this in the future, injury to blood vessels leading to life-threatening bleeding, inherent risks of anesthesia, possible positive surgical margins, bladder neck contracture or urethral stricture development. Surgeon: Chino May Click Yes if Unassisted: Yes Anesthesia Type: General Operative Notes Findings: Dense adhesions intraoperatively from his prior abdominal and bilateral inguinal hernia repairs with mesh, extensive intrabdominal adipose tissue, difficult to dissect prostatic apical tissue, inadvertent rectal injury created Closure Type: primary Specimen(s): other (prostate and seminal vesicles, bilateral pelvic lymph nodes) Applied: catheter Estimated Blood Loss (mL): 250 Blood products transfused: none Procedure in detail: After administration of general anesthetic, this patient was placed in an extended dorsal lithotomy position. The lower abdomen and genitalia were shaved, prepped, and draped in a sterile fashion. A 16 fr Li catheter was then passed per urethra in to the bladder and secured in the proper location by inflating the Li balloon. We then made a small transverse incision at the umbilicus, grasped the skin edges to elevate the abdominal wall and we established a pneumoperitoneum with a Veress needle. An 8 mm trocar was then placed. The abdomen was then inspected and free of injury from the trochar placement. Under direct vision, we placed 2 additional trocars on both sides; the far-left lateral port being a 12 mm Airseal port for the assistant merchandiser, and the remainder being 8 mm da Emerita ports. The ports were then connected to the [employer] surgical system. Upon further inspection, he was noted to have extensive adhesions to his prior umbilical hernia mesh as well as in his left lower quadrant, these were gently dissected free. We then began the case by mobilizing the sigmoid colon up out of the pelvis. We opened the peritoneum posterior to the bladder, and we dissected out the ampulla of the vas deferens and seminal vesicles. We secured the vascular supply to the tip of the seminal vesicles utilizing Bovie electrocautery. We then opened the peritoneum on the right and left sides of the bladder and took down the dome attachments with bipolar and monopolar electrocautery. The space of Retzius was fully developed. The superficial dorsal vein was cauterized and transected and the fat on the anterior prostate was dissected off. We opened the endopelvic fascia bilaterally immediately adjacent to the prostate and bluntly swept the levators and rhabdosphincter off of the lateral prostatic fascia. the We then came to the bladder neck anteriorly with minimal difficulty until we identified the previously dissected seminal vesicles. The patient did not have a significant median lobe.We pulled the ampullae and seminal vesicles up through the bladder neck incision. At this point, we performed bilateral pelvic lymph node dissections by opening the fatty tissue along the medial and anterior surface of the external iliac vein distally to Brad?s ligament and proximally to the hypogastric vessels. We then dissected the fatty tissue off of the under surface of the external iliac vein and laterally over to the pelvic sidewall dividing the small vessels that perforated from the pelvic sidewall to the renae packet. Then we identified the obturator nerve where it crossed behind the external iliac vein and divided the renae packet at this level. We then dissected the remainder of the packet off of the obturator nerve and down into the pararectal space. Finally, we used bipolar electrocautery to secure the renae packet at the Brad?s ligament and thus freed the packet at this level. We had a full dissection both sides. We were careful not to injure the obturator nerves. The right pelvic nodes were placed in the right lateral paracolic gutter and the left pelvic LN?s were placed in the left paracolic gutter. The right and left pelvic lymph nodes were sequentially placed in a reusable lap bag and removed from the body and sent off for pathologic analysis at the conclusion of the case. At this point, I opened Denonvilliers? fascia transversely and dissected rectum off the posterolateral prostate. We took the prostatic pedicle with the Vessel sealer. We then released the lateral prostatic fascia anteriorly and lateral tissue down to the apex. I did not perform a nerve spare on the left, however, a partial nerve spare was performed on the right. I then transected the main dorsal vein complex just distal to the prostate. The dorsal vein complex was then oversewn using running 3-0 V-Lock, with good hemostasis. The urethra was then skeletonized and transected immediately adjacent to the prostate. At this point, a small (<2 cm) laceration was appreciated within the distal rectum. General Surgery was consulted for further management, please see their separate dictation for further details. As soon as the rectum was repaired, our attention was turned to the vesicourethral anastomosis. The patient did not require any bladder neck revision.We then fashioned a vesicourethral anastomosis using a running 3-0 V-Lock suture. We tied this over top of 16-Citizen [place] Li catheter, which was watertight when we tested it by filling the bladder with approximately 120 ml of saline. The anastomosis was then covered with Tiseal. The care of the patient was then turned over to General Surgery to perform a diverting loop ileostomy and close his incisions, please see their separate dictation for further details. Complications: other (Rectal injury requiring repair by General Surgery and creation of a diverting loop ileostomy) Post-operative Condition: stable Disposition: Acute Care Plan for aftercare: Transfer to acute care for recovery.
[2024-10-18 20:21] LABS: Add Manual Diff / Slide Review NO; Basophils Absolute Auto 0 /uL (0-100); Basophils Percent Auto 0.2 % (0-2); Eosinophils Absolute Auto 0 /uL (0-450); Hematocrit 46.3 % (41-53); Hemoglobin 15.8 g/dL (13.5-17.5); Lymphocytes Absolute Auto 300 /uL (1100-4500); Lymphocytes Percent Auto 2.1 % (25-40); Mean Corpuscular HGB Conc 34.1 % (30-36); Mean Corpuscular Hemoglobin 32.2 PG (26-34); Mean Corpuscular Volume 94.4 fL (80-100); Monocytes Absolute Auto 900 /uL (0-900); Monocytes Percent Auto 5.7 % (3-14); Neutrophils Absolute Auto 14000 /uL (1500-7000); Platelet Count 144 X10^3/uL (150-400); Red Blood Cell Count 4.91 X10^6/uL (4.5-5.9); Red Cell Distribution Width 13.5 % (11.6-14.8); White Blood Cell Count 15.2 X10^3/uL (4.5-11.0)
[2024-10-18 20:35] LABS: BUN Creatinine Ratio 12.4 (6-22); Blood Urea Nitrogen 16 mg/dL (9-20); Calcium 8.6 mg/dL (8.4-10.2); Carbon Dioxide 25 mmol/L (22-32); Chloride 101 mmol/L (98-107); Estimated Glomerular Filt Rate 58 mL/min (>60); Glucose 152 mg/dL (70-99); HEMOLYSIS < 15 (0-50); Potassium 4.3 mmol/L (3.4-5.1); Sodium 133 mmol/L (137-145)
[2024-10-18] MEDS: PIPERACILLIN/TAZO 3.375 GM in SODIUM CHLORIDE 0.9% 100 ML IV (21:54)
[2024-10-18] MEDS: ACETAMINOPHEN 325 MG TABLET 650 MG PO (21:57)
[2024-10-18] MEDS: SODIUM CHLORIDE 0.9% 1,000 ML 125 ML IV (21:58)
[2024-10-18] MEDS: OXYCODONE IR 5 MG TABLET PO (21:58)
[2024-10-19] VITALS: BP 145/81; PULSE 96; RESP 18; TEMP 37.2; O2SAT 100
[2024-10-19] MEDS: OXYCODONE IR 10 MG TABLET PO ×4 (01:46→14:40)
[2024-10-19] MEDS: HYDROMORPHONE 0.5 MG INJ IV ×2 (02:43→04:41)
--- NOTE | 2024-10-19 02:51 | PC.NURSE ---
Catheter is draining well, 900mls of clear red urine, pt reports chronic headaches and requested pain med, IV dilauded prn given, next oxy not due quite yet, pt agreeable. O2 95%
--- NOTE | 2024-10-19 06:52 | PM.PNPO.1 ---
Subjective Subjective Date Patient Seen: 10/19/24 Time Patient Seen: 06:52 Interval history: 73 y/o M w/ unfavorable intermediate-risk prostate diagnosed via a TRUS prostate biopsy in July of 2024 whose metastatic evaluation was negative and opted to move forward with a RALP. Unfortunately, his procedure was complicated by a 1cm rectal injury that required primary two layer closure with General Surgery and creation of diverting loop ileostomy. Overnight, he recovered as expected and has many questions regarding how his procedure went and his prognosis moving forward. His pain otherwise remains well controlled with narcotics, he has not ambulated yet. Exam Vital Signs (past 8 hours): - 10/19/24 00:00 Temperature 98.9 F Pulse Rate 96 H Respiratory Rate 18 Blood Pressure 145/81 H Pulse Oximetry 100 Oxygen Delivery Method Room Air Oxygen Flow Rate 2 Narrative Exam Narrative: GEN: Alert and oriented X3. No acute distress. Well-nourished. EYES: PERRLA, EOMI. HENT: Moist mucus membranes, no scleral icterus, normal neck ROM. RESP: Unlabored breathing, equal rise and fall of chest bilaterally, no cyanosis appreciated. CV: No peripheral edema, unremarkable heart rate. ABD: Soft, mildly distended, appropriately tender to palpation, incisions covered with dermabond and well approximated, right ileostomy pink and patent, productive of brown liquid, no guarding/rebound/rigidity. : Li catheter secured and draining clear red urine. EXT: No edema, clubbing or cyanosis. SKIN: No rashes or lesions. NEURO: No focal neurologic deficits, CN II-XII grossly intact. PSYCH: Cooperative, appropriate mood and affect. Objective Labs 10/18/24 20:14 10/18/24 20:14 Labs: Laboratory Results - last 24 hr 10/18/24 10/18/24 07:00 20:14 WBC 7.3 15.2 H D RBC 5.11 4.91 Hgb 16.4 15.8 Hct 48.4 46.3 MCV 94.8 94.4 MCH 32.1 32.2 MCHC 33.9 34.1 RDW 13.4 13.5 Plt Count 136 L 144 L Neut % (Auto) 92.0 H Lymph % (Auto) 2.1 L [place] % (Auto) 5.7 Eos % (Auto) 0.0 L Baso % (Auto) 0.2 Neut # (Auto) 36078 H Lymph # (Auto) 300 L [place] # (Auto) 900 Eos # (Auto) 0 Baso # (Auto) 0 Sodium 138 133 L Potassium 3.7 4.3 Chloride 103 101 Carbon Dioxide 25 25 BUN 16 16 Creatinine 1.19 1.29 H Estimated GFR > 60 58 L BUN/Creatinine Ratio 13.4 12.4 Glucose 107 H 152 H Calcium 9.5 8.6 PFSH Medical History Alcohol use disorder HLD (hyperlipidemia) FERNANDA (generalized anxiety disorder) CKD (chronic kidney disease) stage 3, GFR 30-59 ml/min Type 2 diabetes mellitus BPH w urinary obs/LUTS Belle esophagus DARLENE (obstructive sleep apnea) BPH (benign prostatic hyperplasia) Elevated PSA Chronic headache IFG (impaired fasting glucose) Benign essential HTN Surgical History Hx of umbilical hernia repair Hx of bilateral inguinal hernia repair Social History household members: spouse Smoking Status: Current some day smoker alcohol intake: current Assessment & Plan Post-op Postoperative Procedures: Procedures Operation Date: 10/18/24 07:45 Actual Procedure Side Surgeon p Robotic Radical Prostectomy, bilateral pelvic lymph node dissection with loop ileostomy Chino May DO Postoperative status: doing well Postoperative status narrative: 73 y/o M w/ unfavorable intermediate-risk prostate diagnosed via a TRUS prostate biopsy in July of 2024 whose metastatic evaluation was negative and opted to move forward with a RALP and is now POD 1. Unfortunately, his procedure was complicated by a 1cm rectal injury that required primary two layer closure with General Surgery and creation of diverting loop ileostomy. He is otherwise recovering as expected. - Will continue to receive Zosyn until the evening of 19 October 2024 secondary to his aforementioned rectal injury - Li catheter will remain in place at discharge. Should it stop draining, please do not flush, call Yadira immediately - Ileostomy and diet care per Dr. Perez - Ambulate TID in the hallways, will continue with SCD's, IS while awake Postoperative plan: routine post-op care Time Spent With Patient Time with patient: 15-24 minutes Quality VTE Deep Vein Thrombosis/Pulmonary Embolism Present on Admission: No
[2024-10-19 08:00] VITALS: BP 125/67; PULSE 61; RESP 19; TEMP 37.1; O2SAT 94
[2024-10-19] MEDS: PIPERACILLIN/TAZO 3.375 GM in SODIUM CHLORIDE 0.9% 100 ML IV ×2 (08:26→16:55)
--- NOTE | 2024-10-19 11:02 | PM.PN.IH.1 ---
Subjective Subjective Date Patient Seen: 10/19/24 Time Patient Seen: 08:45 Interval history: Doing well. There is a small amount of liquid stool in the ileostomy bag. Exam Vital Signs (past 8 hours): - 10/19/24 08:00 Temperature 98.8 F Pulse Rate 61 Respiratory Rate 19 Blood Pressure 125/67 Pulse Oximetry 94 Oxygen Flow Rate 0 Oxygen Delivery Method Room Air Oxygen Flow Rate 0 Narrative Exam Narrative: Abdomen is soft Ileostomy is slightly dusky but perfused There is a small amount of liquid stool in the bag Objective Labs 10/18/24 20:14 10/18/24 20:14 Labs: Laboratory Results - last 24 hr 10/18/24 20:14 WBC 15.2 H D RBC 4.91 Hgb 15.8 Hct 46.3 MCV 94.4 MCH 32.2 MCHC 34.1 RDW 13.5 Plt Count 144 L Neut % (Auto) 92.0 H Lymph % (Auto) 2.1 L [place] % (Auto) 5.7 Eos % (Auto) 0.0 L Baso % (Auto) 0.2 Neut # (Auto) 99190 H Lymph # (Auto) 300 L [place] # (Auto) 900 Eos # (Auto) 0 Baso # (Auto) 0 Sodium 133 L Potassium 4.3 Chloride 101 Carbon Dioxide 25 BUN 16 Creatinine 1.29 H Estimated GFR 58 L BUN/Creatinine Ratio 12.4 Glucose 152 H Calcium 8.6 PFSH Medical History Alcohol use disorder HLD (hyperlipidemia) FERNANDA (generalized anxiety disorder) CKD (chronic kidney disease) stage 3, GFR 30-59 ml/min Type 2 diabetes mellitus BPH w urinary obs/LUTS Belle esophagus DARLENE (obstructive sleep apnea) BPH (benign prostatic hyperplasia) Elevated PSA Chronic headache IFG (impaired fasting glucose) Benign essential HTN Surgical History Hx of umbilical hernia repair Hx of bilateral inguinal hernia repair Social History household members: spouse Smoking Status: Current some day smoker alcohol intake: current Assessment & Plan Assessment and plan (1) Rectal injury: Qualifiers: Encounter type: initial encounter Qualified Code(s): S36.60XA - Unspecified injury of rectum, initial encounter Status: Acute Plan Doing well Clear liquid diet today Likely advance to regular diet tomorrow Time-Based Coding :: [TOTAL MINUTES] spent with patient and on the chart (including review of chart, obtaining history, exam, reviewing outside data, placing orders, documenting exam and treatment plan, and counseling patient) on [DATE]. Quality VTE Deep Vein Thrombosis/Pulmonary Embolism Present on Admission: No IH PROFEE Data Deliverables Manager Document charge(s): No
[2024-10-19] MEDS: methocarbamoL 500 MG TABLET PO ×2 (12:30→21:13)
[2024-10-19 14:00] VITALS: BP 133/72; PULSE 71; RESP 17; TEMP 37.2; O2SAT 92
[2024-10-19] MEDS: SODIUM CHLORIDE 0.9% 1,000 ML 100 ML IV (14:41)
--- NOTE | 2024-10-19 15:23 | CM.DANOTE ---
Addendum entered by LUCY Retana 10/19/24 15:38: per RN, PT order placed, will work with him likely tomorrow 6/5 SL Original Note: B DCP Assessment Note pt is a 73yo M POD1 lap radical protastectomy with Dr. Velasco, surgical complication mid surgery, per PN complicated by a 1cm rectal injury that required primary two layer closure with General Surgery and creation of diverting loop ileostomy PCP Bin Hsieh [facility] and self pay MARKETING ANALYTICS SPECIALIST reviewed EMR. Per chart, pt lives indep with spouse in [place]. was supposted to be SDC, switched to INPT due to medical complication. per general surgeon note, plan is to advance diet tomorrow. per RN, plan was to get pt ambulating today. if weak/unsteady, plans to reach out to Dr. Velasco about a PT eval. no other obvious/anticipated CM needs at this time. pt was anxious last night/today post op due to the complications but RN reports she was able to answer most of his questions this morning. MARKETING ANALYTICS SPECIALIST unable to meet with pt today due to triaging needs. P: anticipate dc home with spouse when medically stable and OP f/u. f/u if PT eval needed for safety mobility assessment. may be good HH candidate. CM team will continue to follow closely in case any DCP/CM needs arise. LUCY Retana Discharge Planning/Care Management CM Discharge Assessment Start: 10/18/24 07:39 Freq: Status: Active Protocol: Document 10/19/24 15:22 SL (Rec: 10/19/24 15:22 SL Desktop) Discharge Planning Assessment Assigned Discharge LUCY Henderson [employer] Sales Consultant DPOA/Assigned Natali, spouse Designee Name Contact Information [phone] Advance Directives? No History Provided By Patient Prior Living House Arrangements Household Members spouse Independent with ADL Yes 's Is patient alert and Yes oriented? Discharge Plan Home Referrals Initiated None needed Review Status In Process Please Provide Date 10/19/24 Initial DC Assessment Was Performed Next Review Type Continued Stay Review Pre-Anesthesia Assessment Start: 10/12/24 12:03 Freq: Status: Active Protocol: Document 10/12/24 12:03 LB (Rec: 10/12/24 12:24 LB [id number]) Pre-Anesthesia Assessment PAC Comment 10/12/24 Phone assessment. Preferred Name [place] Patient Information Phone Assessment Reviewed Via Assessment Completed Patient,Spouse With Diagnostic Results Urinalysis,Other Comment 09/09/24 at . Primary Care Gus Hsieh Provider Seen Specialist in Yes Last 12 Months Specialist Seen Emergency,Urologist Primary Language Tongan Preferred Language Tongan News Analyst Required No Height 165.1 cm Weight 92.986 kg Body Mass Index (BMI 34.1 ) Hearing Ability Normal Visual Assist Glasses Dentition Type Teeth, Natural Present Barriers to Learning None Other Aids No Comment Glasses for reading. Hx Anesthesia No Reactions Hx Family Anesthesia No Reaction Hx Malignant No Hyperthermia Hx Blood No Transfusions Anesthesia Review No Requested Hip Hop Dancer No alcohol intake current alcohol intake a few times a month frequency Smoking Status Never smoker Substance Use Type [ does not use #R] Comment CBD cream on head/neck. Pain Present Pain Reported Comment Headache. History of Falling ( No Recent or History of ) Patient is No completely paralyzed or completely immobile Mental Status Oriented to own ability Is patient on oxygen No ? Hx Sleep Apnea Yes CPAP/BIPAP use prescribed not used Comment Sleeps with HOB elevated. Currently Taking a No Beta Eloise Can You Climb a Yes Flight of Stairs Without SOB Hx Chest Pain No Hx SOB No Hx Syncope or No Dizziness Anti-Coagulant No Therapy Has a Osteologist No Hx Pacemaker/ICD No Cardiac Clearance Not Applicable Received Dysphagia No Gastrointestinal Reflux Symptoms Chronic UTI No Bladder Pattern Nocturia Urinary Catheter No Present Hx Urinary Self No Catheterization Diabetes Yes HgbA1C 6.1 Date 09/23/24 Comment Does not check blood sugar. Hx Drug Resistant No Organism Presence of External Yes: Umbilical mesh. or Internal Medical Devices Have you had any No close contact with someone diagnosed with COVID-19? Are you experiencing No symptoms any of these symptoms? Comment Denies covid last 8 weeks. Marital Status Lives With spouse Number of Floors ( One Floor Floors) Number of Stairs To 2 steps without railing. Enter/Railing? Support System Spouse Patient Discharge Return Home Plan Description Comment Advised overnight LOS. Do You Have Any No Spiritual Beliefs That May Affect Your HC Choices? Do You Have Any No Cultural Practices That May Affect Your HC Choices? Emergency Contact Natali Rivas - Name Emergency Contact [phone] Phone Number Advance Directives? Yes Advance Directives No on File Requested Patient Yes Bring Advanced Directives DOS PAC Instructions Assistance for 24 hours post-op,Do not shave/clip surgical site,Medications to take/avoid,No ETOH/ petroleum product on skin DOS,NPO,Post-op transportation,Pre-surgical wash,Sensory aids,Sturdy shoes/comfortable clothes,Do not bring valuables and remove jewelry
[2024-10-19] MEDS: ACETAMINOPHEN 325 MG TABLET 975 MG PO (17:39)
[2024-10-19 20:01] VITALS: BP 142/79; PULSE 67; RESP 20; TEMP 37.3; O2SAT 94
--- NOTE | 2024-10-19 20:39 | PC.RNWOUND ---
Ostomy Nurse Consult Note Patient status post on 10/17/24 Unfavorable intermediated risk prostate cancer with diverting loop ileostomy. Patient is sitting up in the chair at the bedside. His is with him. I was unable to visualize the stoma and removed the pouch. Stoma looked dusky. I removed the wafer. Stoma is moist, and pink. Measures 32cm oval above the skin level at .5cm. Stomas sutures intact. Area from 11:00-1:00 has some sloughy tissue. Stoma out put of green brown liquid effluent. There are two serous filled blisters , one at 10:00 measuring 2.0cm and one at 11:00 measuring 1.0cm. These blister follow the foot print of the osotmy wafer. Changed appliance. Placed a Coloplast flat # [id number] wafer and a pouch #[id number] with an tip ring. Gave patient the [facility] New Patient Guide and [facility] Nutrition Guide. Patient and will review guides. Showed the patient and the crusting technique. Reviewed how to empty the appliance. Took pictures of the stoma and blisters. Recommend HOME HEALTH to continue with stoma assessment and teaching. Recommend [facility] for continues stoma assessment and teaching. I will be unable to return to see patient until October 24 if pateint is still here.
[2024-10-19] MEDS: MELATONIN 3 MG TABLET PO (21:13)
[2024-10-19] MEDS: OXYCODONE IR 5 MG TABLET PO (21:14)
[2024-10-20] VITALS (7 sets, daily range): BP systolic 119–156; BP diastolic 65–95; PULSE 57–87; RESP 15–18; TEMP 36.6–37.2; O2SAT 92–99
[2024-10-20] MEDS: PIPERACILLIN/TAZO 3.375 GM in SODIUM CHLORIDE 0.9% 100 ML IV ×2 (01:02→08:28)
[2024-10-20] MEDS: ONDANSETRON 4 MG/2 ML INJ IV (04:17)
[2024-10-20] MEDS: SODIUM CHLORIDE 0.9% 1,000 ML 100 ML IV ×3 (04:17→23:11)
[2024-10-20] MEDS: HYDROMORPHONE 0.5 MG INJ IV (04:17)
[2024-10-20] MEDS: LORazepam 0.5 MG TABLET PO ×2 (04:42→08:28)
--- NOTE | 2024-10-20 08:02 | PM.PN.IH.1 ---
Subjective Subjective Date Patient Seen: 10/20/24 Time Patient Seen: 08:02 Interval history: Feeling somewhat nauseous and distended. Not hungry. Worked care ostomy nurse Sybil yesterday. Exam Vital Signs (past 8 hours): - 10/20/24 00:06 10/20/24 05:10 10/20/24 06:30 Temperature 98.4 F 98.5 F 98.9 F Pulse Rate 62 64 64 Respiratory Rate 18 18 Blood Pressure 119/95 H 156/81 H 145/80 H Pulse Oximetry 94 95 94 Oxygen Flow Rate 0 0 0 Oxygen Delivery Method Room Air Oxygen Flow Rate 0 Narrative Exam Narrative: Abdomen is soft, moderately distended Small amount dark liquid stool in the ostomy bag Objective Labs 10/18/24 20:14 10/18/24 20:14 PFSH Medical History Alcohol use disorder HLD (hyperlipidemia) FERNANDA (generalized anxiety disorder) CKD (chronic kidney disease) stage 3, GFR 30-59 ml/min Type 2 diabetes mellitus BPH w urinary obs/LUTS Belle esophagus DARLENE (obstructive sleep apnea) BPH (benign prostatic hyperplasia) Elevated PSA Chronic headache IFG (impaired fasting glucose) Benign essential HTN Surgical History Hx of umbilical hernia repair Hx of bilateral inguinal hernia repair Social History household members: spouse Smoking Status: Current some day smoker alcohol intake: current Assessment & Plan Assessment and plan (1) Rectal injury: Qualifiers: Encounter type: initial encounter Qualified Code(s): S36.60XA - Unspecified injury of rectum, initial encounter Status: Acute Plan Stick with clear liquids for now. Advance to regular when he is less distended Time-Based Coding :: [TOTAL MINUTES] spent with patient and on the chart (including review of chart, obtaining history, exam, reviewing outside data, placing orders, documenting exam and treatment plan, and counseling patient) on [DATE]. Quality VTE Deep Vein Thrombosis/Pulmonary Embolism Present on Admission: No IH PROFEE Networking Technology Instructor Document charge(s): No
[2024-10-20] MEDS: ACETAMINOPHEN 325 MG TABLET 975 MG PO ×2 (08:27→17:28)
[2024-10-20] MEDS: OXYCODONE IR 5 MG TABLET PO ×4 (08:27→23:10)
[2024-10-20 08:28] LABS: Add Manual Diff / Slide Review NO; Basophils Absolute Auto 100 /uL (0-100); Basophils Percent Auto 0.5 % (0-2); Eosinophils Absolute Auto 0 /uL (0-450); Eosinophils Percent Auto 0.4 % (2-4); Hematocrit 42.6 % (41-53); Hemoglobin 14.7 g/dL (13.5-17.5); Lymphocytes Absolute Auto 800 /uL (1100-4500); Lymphocytes Percent Auto 7.2 % (25-40); Mean Corpuscular HGB Conc 34.5 % (30-36); Mean Corpuscular Hemoglobin 32.7 PG (26-34); Mean Corpuscular Volume 94.6 fL (80-100); Monocytes Absolute Auto 1100 /uL (0-900); Monocytes Percent Auto 9.5 % (3-14); Neutrophils Absolute Auto 9400 /uL (1500-7000); Neutrophils Percent Auto 82.4 % (50-75); Platelet Count 141 X10^3/uL (150-400); Red Cell Distribution Width 13.6 % (11.6-14.8); White Blood Cell Count 11.4 X10^3/uL (4.5-11.0)
[2024-10-20 08:40] LABS: BUN Creatinine Ratio 12.7 (6-22); Blood Urea Nitrogen 13 mg/dL (9-20); Calcium 8.5 mg/dL (8.4-10.2); Carbon Dioxide 28 mmol/L (22-32); Chloride 105 mmol/L (98-107); Estimated Glomerular Filt Rate > 60 mL/min (>60); Glucose 137 mg/dL (70-99); HEMOLYSIS < 15 (0-50); Potassium 4.1 mmol/L (3.4-5.1); Sodium 137 mmol/L (137-145)
--- NOTE | 2024-10-20 09:01 | PM.PNPO.1 ---
Subjective Subjective Date Patient Seen: 10/20/24 Time Patient Seen: 09:00 Interval history: 73 y/o M w/ unfavorable intermediate-risk prostate diagnosed via a TRUS prostate biopsy in July of 2024 whose metastatic evaluation was negative and opted to move forward with a RALP, he is now POD 2. Unfortunately, his procedure was complicated by a 1cm rectal injury that required primary two layer closure with General Surgery and creation of diverting loop ileostomy. Overnight, he was advanced to a regular diet and suffered from some nausea and vomiting. His pain otherwise remains well controlled with narcotics, he has ambulated very minimally to this point. Exam Vital Signs (past 8 hours): - 10/20/24 05:10 10/20/24 06:30 10/20/24 08:00 Temperature 98.5 F 98.9 F 99 F Pulse Rate 64 64 87 Respiratory Rate 18 18 Blood Pressure 156/81 H 145/80 H 144/87 H Pulse Oximetry 95 94 93 Oxygen Flow Rate 0 0 0 Oxygen Delivery Method Room Air Oxygen Flow Rate 0 Narrative Exam Narrative: GEN: Alert and oriented X3. No acute distress. Well-nourished. EYES: PERRLA, EOMI. HENT: Moist mucus membranes, no scleral icterus, normal neck ROM. RESP: Unlabored breathing, equal rise and fall of chest bilaterally, no cyanosis appreciated. CV: No peripheral edema, unremarkable heart rate. ABD: Soft, mildly distended, appropriately tender to palpation, incisions covered with dermabond and well approximated, right ileostomy pink and patent, productive of brown liquid, no guarding/rebound/rigidity. : Li catheter secured and draining clear red urine. EXT: No edema, clubbing or cyanosis. SKIN: No rashes or lesions. NEURO: No focal neurologic deficits, CN II-XII grossly intact. PSYCH: Cooperative, appropriate mood and affect. Objective Labs 10/20/24 08:18 10/20/24 08:18 Labs: Laboratory Results - last 24 hr 10/20/24 08:18 WBC 11.4 H RBC 4.50 Hgb 14.7 Hct 42.6 MCV 94.6 MCH 32.7 MCHC 34.5 RDW 13.6 Plt Count 141 L Neut % (Auto) 82.4 H Lymph % (Auto) 7.2 L [place] % (Auto) 9.5 Eos % (Auto) 0.4 L Baso % (Auto) 0.5 Neut # (Auto) 9400 H Lymph # (Auto) 800 L [place] # (Auto) 1100 H Eos # (Auto) 0 Baso # (Auto) 100 Sodium 137 Potassium 4.1 Chloride 105 Carbon Dioxide 28 BUN 13 Creatinine 1.02 Estimated GFR > 60 BUN/Creatinine Ratio 12.7 Glucose 137 H Calcium 8.5 PFSH Medical History Alcohol use disorder HLD (hyperlipidemia) FERNANDA (generalized anxiety disorder) CKD (chronic kidney disease) stage 3, GFR 30-59 ml/min Type 2 diabetes mellitus BPH w urinary obs/LUTS Belle esophagus DARLENE (obstructive sleep apnea) BPH (benign prostatic hyperplasia) Elevated PSA Chronic headache IFG (impaired fasting glucose) Benign essential HTN Surgical History Hx of umbilical hernia repair Hx of bilateral inguinal hernia repair Social History household members: spouse Smoking Status: Current some day smoker alcohol intake: current Assessment & Plan Post-op Postoperative Procedures: Procedures Operation Date: 10/18/24 07:45 Actual Procedure Side Surgeon p Robotic Radical Prostectomy, bilateral pelvic lymph node dissection and Robotic primary repair of distal rectal injury, Rigid proctoscopy, Diverting loop ileostomy Chino May DO Postoperative status: doing well Postoperative status narrative: 73 y/o M w/ unfavorable intermediate-risk prostate diagnosed via a TRUS prostate biopsy in July of 2024 whose metastatic evaluation was negative and opted to move forward with a RALP and is now POD 2. Unfortunately, his procedure was complicated by a 1cm rectal injury that required primary two layer closure with General Surgery and creation of diverting loop ileostomy. He is otherwise recovering as expected. - Will discontinue Zosyn this morning. - Li catheter will remain in place at discharge. Should it stop draining, please do not flush, call [facility] immediately - Ileostomy and diet care per Dr. Perez - Ambulate TID in the hallways, will continue with SCD's, IS while awake - Heparin TID Postoperative plan: routine post-op care Time Spent With Patient Time with patient: less than 15 minutes Quality VTE Deep Vein Thrombosis/Pulmonary Embolism Present on Admission: No
--- NOTE | 2024-10-20 09:46 | PT.IIE ---
Current Diagnoses Malignant neoplasm of prostate (10/18/24) Unspecified injury of rectum, initial encounter (10/18/24) Surgery Performed Operation Date: 10/18/24 07:45 Actual Procedures p Robotic Radical Prostectomy, bilateral pelvic lymph node dissection and Robotic primary repair of distal rectal injury, Rigid proctoscopy, Diverting loop ileostomy - Chino May DO Surgical History (Last Reviewed 10/20/24 @ 09:03 by Chino May DO) Hx of bilateral inguinal hernia repair Hx of umbilical hernia repair Medical History (Last Reviewed 10/20/24 @ 09:03 by Chino May DO) Alcohol use disorder Belle esophagus Benign essential HTN BPH (benign prostatic hyperplasia) BPH w urinary obs/LUTS Chronic headache CKD (chronic kidney disease) stage 3, GFR 30-59 ml/min Elevated PSA FERNANDA (generalized anxiety disorder) HLD (hyperlipidemia) IFG (impaired fasting glucose) DARLENE (obstructive sleep apnea) Type 2 diabetes mellitus Physical Therapy Inpatient Evaluation/Re-Eval M1 PT/OT-IP Prior Functional Status Start: 10/20/24 10:20 Freq: NEEDED Status: Active Protocol: Document 10/20/24 09:46 DLM (Rec: 10/20/24 10:35 DLM Desktop) Medical Review Prior Functional Status Medical History Yes Reviewed Diet/Fluid Regular Consistency Communication glasses for reading Mobility and Gait 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 M2 PT-IP Current Condition Start: 10/20/24 10:20 Freq: NEEDED Status: Active Protocol: Document 10/20/24 09:46 DLM (Rec: 10/20/24 10:35 DLM Desktop) Physical Therapy Current Condition Current Condition Evaluation Date 10/20/24 Treatment Diagnosis ostomy, prostatectomy, impaired gait Onset Date 10/18/24 M3 PT-IP Subjective Start: 10/20/24 10:20 Freq: NEEDED Status: Active Protocol: Document 10/20/24 09:46 DLM (Rec: 10/20/24 10:35 DLM Desktop) Subjective Physical Therapy Visit Type Type Initial Evaluation Visit Start Time 09:06 Visit Stop Time 09:46 Notes 40 min Number of PNP Visits 0 Physical Therapy Visit Comments Patient Comments He reports having difficulty with nausea this morning. He reports his will be able to help him at home. Patient Goals Discharge home Therapy Pain Assessment Pain When Pain Assessed After Treatment Pain Present Pain Present Pain Reported Location Posterior Head Intensity 2 Scale Used Numeric (0 - 10) Description Aching,Tender,Tightness Pain Behaviors Guarding Pain Management Apply Heat Techniques M4 PT-IP Mobility and Gait Start: 10/20/24 10:20 Freq: NEEDED Status: Active Protocol: Document 10/20/24 09:46 DLM (Rec: 10/20/24 10:35 DLM Desktop) PT-Bed Mobility Assessment Rolling Type of Rolling Roll to Right Level of Assist Standby Assistance Supine to Sit Supine to Sit Standby Assistance Scooting Scooting to Edge of Independent Bed PT-Transfer Assessment Sit to and From Stand Sit to and from Standby Assistance,Use of Upper Extremities Stand Equipment Transfer Assistive Gait Belt,Front Wheeled Walker Device Transfers Transfer Destination Bed,Chair Transfer Technique Stand Step Pivot Transfer Ability Level of Assist Standby Assistance,Use of Upper Extremities Comments Mobility Comments good use of UE's to assist sit-stand, verbal cues for pt to use sidelying technique to get out of bed (he sleeps with head elevated at home) Pt left sitting up in recliner at the end of this visit with call light close, 2/10 neck pain reported in this position. Nursing is aware he is up. Gait Assessment Gait Gait Assistance Standby Assistance,Contact Guard Assist Required: Distance (Feet) 40 Assistive Devices Assistive Device Gait Belt,Front Wheeled Walker Factors Limiting Gait Function Factors Limiting Decreased Activity Tolerance,Pain Gait Function Comments Gait Comments His pace of gait is slow this visit. Dizziness with gait that limited his distance this visit. Unable to assess BP when pt at that time. After gait pt sitting up in recliner with BP 140/83 and HR 75. No nausea and no vomiting reported during this visit. Stair Climbing Assessment Comments Stair Climbing unable to assess this visit due to dizziness with gait Comments PT-Balance Assessment Standing Balance and Reactions Static Standing Good Balance Ability Dynamic Standing Good Balance Ability Device Used FWW M5 PT-IP Objective Assessments Start: 10/20/24 10:20 Freq: NEEDED Status: Active Protocol: Document 10/20/24 09:46 DLM (Rec: 10/20/24 10:35 DLM Desktop) Orientation Orientation/Cognition Level of Alertness Alert Orientation Name,Age,Birthday,Month,Date,Year,Day of Week,Place, Situation Language Function No Deficits Noted Ability Safety Awareness Understands Safety Issues Memory Description No Deficits Noted Gross Range of Motion Upper Extremity ROM Assessment Within Functional Limits Lower Extremity ROM Assessment Within Functional Limits Strength Upper Extremity Strength Assessment Within Functional Limits Lower Extremity Strength Assessment Within Functional Limits Comments Strength Comments he describes pain in shoulder area with movement since his abdominal surgery, getting better per pt he reports chronic crepitus in neck that limits his movements Coordination Assessment Gross Coordination Gross Coordination WNL Sensation Assessment Sensation Gross Sensation WNL Muscle Tone Muscle Tone WNL Yes M6 PT-IP Treatment Start: 10/20/24 10:20 Freq: NEEDED Status: Active Protocol: Document 10/20/24 09:46 DLM (Rec: 10/20/24 10:35 DLM Desktop) Physical Therapy Treatment Exercises Exercises Ankle Pumps,Shoulder Flexion Education Education Provided Precautions,Safety Other Treatments Other Treatment warm blanket around neck/shoulders for pain management Performed with pt in recliner, Exercises added: gentle active neck range of motion as tolerated by pain, shoulder rolls M7 PT-IP Assessment and Plan Start: 10/20/24 10:20 Freq: NEEDED Status: Active Protocol: Document 10/20/24 09:46 DLM (Rec: 10/20/24 10:35 DLM Desktop) PT Summary Assessment and Plan Potential Rehabilitation Excellent Potential Status of Condition Evolving at Evaluation Summary Impairments Pain,Strength,Balance,Bed Mobility,Transfers,Gait, Activity Tolerance Goals Bed Mobility Goal Independent Transfer Goal Independent,Front Wheeled Walker Gait Goal Standby Assistance,Front Wheel Walker Gait Distance 150 feet Other Goals up/down 2 steps with CG/min assist Days to Meet Goals 3 Frequency of Treatment Frequency Of Once a Day Treatment Treatment Plan Physical Therapy Bed Mobility Training,Transfer Training,Gait Training, Treatment Plan Therapeutic Exercise,Balance Retraining,Discharge Planning,Hot or Cold Pack,Neuromuscular Re-ed,Manual Therapy Precautions Abdominal Surgery Log Roll,Lifting Restrictions,Gait Belt above Precautions Incisional Area Other Precautions dizziness with gait this visit exacerbation of chronic neck pain after abdominal surgery Recommendations To Nursing Amount of Assist Standby Assistance Needed Discharge Recommendations PT Discharge Home with Assistance Recommendations Equipment Needed for Front Wheeled walker Home Before Discharge Transportation Needs Private Vehicle at Discharge - PT assist 1
[2024-10-20] MEDS: OXYCODONE IR 10 MG TABLET PO (12:10)
[2024-10-20] MEDS: methocarbamoL 500 MG TABLET PO ×2 (13:31→20:20)
[2024-10-20] MEDS: HEPARIN 5,000 UNIT/ML VIAL 5000 UNIT SUBCUT ×2 (15:09→21:26)
[2024-10-20] MEDS: MELATONIN 3 MG TABLET PO (20:20)
[2024-10-21 04:00] VITALS: BP 156/82; PULSE 69; RESP 18; TEMP 36.4; O2SAT 96
[2024-10-21] MEDS: OXYCODONE IR 10 MG TABLET PO ×2 (05:07→13:15)
[2024-10-21] MEDS: SODIUM CHLORIDE 0.9% 1,000 ML 100 ML IV ×2 (05:15→09:20)
[2024-10-21] MEDS: HEPARIN 5,000 UNIT/ML VIAL 5000 UNIT SUBCUT ×3 (05:28→21:32)
[2024-10-21 08:00] VITALS: BP 170/82; PULSE 64; RESP 16; TEMP 36.6; O2SAT 91
--- NOTE | 2024-10-21 08:52 | PM.PN.IH.1 ---
Subjective Subjective Date Patient Seen: 10/21/24 Time Patient Seen: 08:52 Interval history: Some emesis yesterday. Feels somewhat better today but has hiccups after any PO intake. Exam Vital Signs (past 8 hours): - 10/21/24 04:00 10/21/24 08:00 Temperature 97.6 F 98 F Pulse Rate 69 64 Respiratory Rate 18 16 Blood Pressure 156/82 H 170/82 H Pulse Oximetry 96 91 Oxygen Flow Rate 0 0 Oxygen Delivery Method Room Air Oxygen Flow Rate 0 Narrative Exam Narrative: Abdomen distended ileostomy with liquid stool output Objective Labs 10/20/24 08:18 10/20/24 08:18 PFSH Medical History Alcohol use disorder HLD (hyperlipidemia) FERNANDA (generalized anxiety disorder) CKD (chronic kidney disease) stage 3, GFR 30-59 ml/min Type 2 diabetes mellitus BPH w urinary obs/LUTS Belle esophagus DARLENE (obstructive sleep apnea) BPH (benign prostatic hyperplasia) Elevated PSA Chronic headache IFG (impaired fasting glucose) Benign essential HTN Surgical History Hx of umbilical hernia repair Hx of bilateral inguinal hernia repair Social History household members: spouse Smoking Status: Current some day smoker alcohol intake: current Assessment & Plan Assessment and plan (1) Rectal injury: Qualifiers: Encounter type: initial encounter Qualified Code(s): S36.60XA - Unspecified injury of rectum, initial encounter Status: Acute Plan Advance to regular DC when tolerating regular Time-Based Coding :: [TOTAL MINUTES] spent with patient and on the chart (including review of chart, obtaining history, exam, reviewing outside data, placing orders, documenting exam and treatment plan, and counseling patient) on [DATE]. Quality VTE Deep Vein Thrombosis/Pulmonary Embolism Present on Admission: No IH PROFEE Counselor Supervisor Document charge(s): No
[2024-10-21 09:13] LABS: Add Manual Diff / Slide Review NO; Basophils Absolute Auto 100 /uL (0-100); Basophils Percent Auto 0.6 % (0-2); Eosinophils Absolute Auto 300 /uL (0-450); Eosinophils Percent Auto 2.8 % (2-4); Hematocrit 41.1 % (41-53); Hemoglobin 14.1 g/dL (13.5-17.5); Lymphocytes Absolute Auto 1400 /uL (1100-4500); Lymphocytes Percent Auto 13.8 % (25-40); Mean Corpuscular HGB Conc 34.4 % (30-36); Mean Corpuscular Hemoglobin 32.8 PG (26-34); Mean Corpuscular Volume 95.4 fL (80-100); Monocytes Absolute Auto 1000 /uL (0-900); Monocytes Percent Auto 10.1 % (3-14); Neutrophils Absolute Auto 7200 /uL (1500-7000); Neutrophils Percent Auto 72.7 % (50-75); Platelet Count 135 X10^3/uL (150-400); Red Blood Cell Count 4.31 X10^6/uL (4.5-5.9); White Blood Cell Count 9.9 X10^3/uL (4.5-11.0)
[2024-10-21] MEDS: LORazepam 0.5 MG TABLET PO (09:19)
[2024-10-21 09:34] LABS: BUN Creatinine Ratio 13.7 (6-22); Blood Urea Nitrogen 13 mg/dL (9-20); Calcium 8.1 mg/dL (8.4-10.2); Carbon Dioxide 28 mmol/L (22-32); Chloride 103 mmol/L (98-107); Estimated Glomerular Filt Rate > 60 mL/min (>60); Glucose 100 mg/dL (70-99); HEMOLYSIS < 15 (0-50); Potassium 4.2 mmol/L (3.4-5.1); Sodium 136 mmol/L (137-145)
--- NOTE | 2024-10-21 11:47 | CM.DPNOTE ---
DCP Cont Patient with new loop ileostomy. Sybil Alan, ostomy nurse has completed initial teaching with patient and recommends HH RN. Placed call to outpatient wound care clinic, had to LM requesting patient be scheduled with Sybil Alan outpatient. Met w/patient to discuss HH referral; patient agreeable. No agency preference. Referral emailed to Giov[facility] at [facility] according to calendar rotation. Emailed clinical, F2F and HH order. PT=Home. Plan: Discharge home once tolerating a general diet. [facility] likely to follow for HH RN/PT (pending review and acceptance). Spouse to transport and assist once home. RAUL
--- NOTE | 2024-10-21 12:06 | P.PN_ITS ---
Subjective Subjective Date Patient Seen: 10/21/24 Time Patient Seen: 11:30 Interval history: 73 y/o M w/ unfavorable intermediate-risk prostate diagnosed via a TRUS prostate biopsy in July of 2024 whose metastatic evaluation was negative and opted to move forward with a RALP, he is now POD 3. Unfortunately, his procedure was complicated by a 1cm rectal injury that required primary two layer closure with General Surgery and creation of diverting loop ileostomy. Overnight, he remained on a clear liquid diet. His pain otherwise remains well controlled with narcotics, he has ambulated at least 7 laps in the hospital over the last 24 hours. Exam Vital Signs (past 8 hours): - 10/21/24 08:00 Temperature 98 F Pulse Rate 64 Respiratory Rate 16 Blood Pressure 170/82 H Pulse Oximetry 91 Oxygen Flow Rate 0 Oxygen Delivery Method Room Air Oxygen Flow Rate 0 Narrative Exam Narrative: GEN: Alert and oriented X3. No acute distress. Well-nourished. EYES: PERRLA, EOMI. HENT: Moist mucus membranes, no scleral icterus, normal neck ROM. RESP: Unlabored breathing, equal rise and fall of chest bilaterally, no cyanosis appreciated. CV: No peripheral edema, unremarkable heart rate. ABD: Soft, mildly distended, appropriately tender to palpation, incisions covered with dermabond and well approximated, right ileostomy pink and patent, productive of brown liquid, no guarding/rebound/rigidity. : Li catheter secured and draining clear red urine. EXT: No edema, clubbing or cyanosis. SKIN: No rashes or lesions. NEURO: No focal neurologic deficits, CN II-XII grossly intact. PSYCH: Cooperative, appropriate mood and affect. Objective Labs 10/21/24 08:20 10/21/24 08:20 Labs: Laboratory Results - last 24 hr 10/21/24 08:20 WBC 9.9 RBC 4.31 L Hgb 14.1 Hct 41.1 MCV 95.4 MCH 32.8 MCHC 34.4 RDW 13.0 Plt Count 135 L Neut % (Auto) 72.7 Lymph % (Auto) 13.8 L [place] % (Auto) 10.1 Eos % (Auto) 2.8 Baso % (Auto) 0.6 Neut # (Auto) 7200 H Lymph # (Auto) 1400 [place] # (Auto) 1000 H Eos # (Auto) 300 Baso # (Auto) 100 Sodium 136 L Potassium 4.2 Chloride 103 Carbon Dioxide 28 BUN 13 Creatinine 0.95 Estimated GFR > 60 BUN/Creatinine Ratio 13.7 Glucose 100 H Calcium 8.1 L PFSH Medical History Alcohol use disorder HLD (hyperlipidemia) FERNANDA (generalized anxiety disorder) CKD (chronic kidney disease) stage 3, GFR 30-59 ml/min Type 2 diabetes mellitus BPH w urinary obs/LUTS Belle esophagus DARLENE (obstructive sleep apnea) BPH (benign prostatic hyperplasia) Elevated PSA Chronic headache IFG (impaired fasting glucose) Benign essential HTN Surgical History Hx of umbilical hernia repair Hx of bilateral inguinal hernia repair Social History household members: spouse Smoking Status: Current some day smoker alcohol intake: current Assessment & Plan Post-op Postoperative Procedures: Procedures Operation Date: 10/18/24 07:45 Actual Procedure Side Surgeon p Robotic Radical Prostectomy, bilateral pelvic lymph node dissection and Robotic primary repair of distal rectal injury, Rigid proctoscopy, Diverting loop ileostomy Chino May DO Postoperative status: doing well Postoperative status narrative: 73 y/o M w/ unfavorable intermediate-risk prostate diagnosed via a TRUS prostate biopsy in July of 2024 whose metastatic evaluation was negative and opted to move forward with a RALP and is now POD 3. Unfortunately, his procedure was complicated by a 1cm rectal injury that required primary two layer closure with General Surgery and creation of diverting loop ileostomy. He is otherwise recovering as expected. - Li catheter will remain in place at discharge. Should it stop draining, please do not flush, call [facility] immediately - Ileostomy and diet care per Dr. Perez - Ambulate TID in the hallways, will continue with SCD's, IS while awake - Heparin TID Postoperative plan: routine post-op care Time Spent With Patient Time with patient: 15-24 minutes Quality VTE Deep Vein Thrombosis/Pulmonary Embolism Present on Admission: No
--- NOTE | 2024-10-21 12:54 | PT-IP ANOTE ---
Pt refused PT this am, stating he has been up walking in the halls, and has no needs for PT at this time.
[2024-10-21 14:00] VITALS: BP 162/94; PULSE 63; RESP 18; TEMP 36.6; O2SAT 92
--- NOTE | 2024-10-21 14:00 | PC.NURSE ---
Per MD Perez, okay to stop IVF and restart home medications.
[2024-10-21] MEDS: ACETAMINOPHEN 325 MG TABLET 975 MG PO (14:59)
[2024-10-21] MEDS: methocarbamoL 500 MG TABLET PO (15:01)
[2024-10-21] MEDS: SUMAtriptan 25 MG TABLET PO (15:01)
--- NOTE | 2024-10-21 16:49 | PC.NURSE ---
Pt and pt's requested ileostomy education; wood grinder had previously provided education, but pt and pt's said they didn't feel competent and desired further training, as well as to have the bag changed before pt d/c tomorrow (10/22), as wound care told them to change bag Q3 days. Walked pt and pt through process and then changed ileostomy bag and sticker; cut modified 1 5/8 [place] to fit oblong shape of ileostomy. Stitches intact, ostomy red and beefy, producing dark liquid stool and flatus. Provided educational resources. Pt and pt stated all questions answered. Pt resting comfortably, call light within reach, plan of care continues.
[2024-10-21 20:00] VITALS: BP 161/87; PULSE 56; RESP 18; TEMP 37; O2SAT 94
[2024-10-21] MEDS: PANTOPRAZOLE DR 20 MG TABLET PO (20:41)
[2024-10-21] MEDS: ATORVASTATIN 20 MG TABLET 10 MG PO (20:41)
[2024-10-21] MEDS: SODIUM CHLORIDE 0.9% FLUSH 10 ML IV (21:33)
[2024-10-22 02:00] VITALS: BP 169/89; PULSE 58; RESP 18; TEMP 36.5; O2SAT 95
[2024-10-22] MEDS: HEPARIN 5,000 UNIT/ML VIAL 5000 UNIT SUBCUT ×2 (06:06→14:08)
[2024-10-22] MEDS: PANTOPRAZOLE DR 20 MG TABLET PO (06:06)
[2024-10-22] MEDS: OXYCODONE IR 10 MG TABLET PO (08:00)
[2024-10-22] MEDS: ACETAMINOPHEN 325 MG TABLET 975 MG PO (08:01)
[2024-10-22 08:08] VITALS: BP 195/98; PULSE 65
[2024-10-22] MEDS: LOSARTAN 50 MG TABLET 100 MG PO (08:08)
[2024-10-22] MEDS: allopurinoL 100 MG TABLET PO (08:08)
[2024-10-22 08:12] VITALS: BP 195/98; PULSE 65; RESP 14; TEMP 36.9; O2SAT 97
[2024-10-22] MEDS: SODIUM CHLORIDE 0.9% FLUSH 10 ML IV (08:55)
[2024-10-22] MEDS: OXYCODONE IR 5 MG TABLET PO (08:55)
[2024-10-22 09:02] VITALS: BP 134/68; PULSE 67; O2SAT 97
--- NOTE | 2024-10-22 10:21 | P.PN_ITS ---
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 Unfortunately, his procedure was complicated by a 1cm rectal injury that required primary two layer closure with General Surgery and creation of diverting loop ileostomy. Overnight, he remained on a regular diet. His pain otherwise remains well controlled with narcotics, he has ambulated at least 7 laps in the hospital over the last 24 hours. Exam Vital Signs (past 8 hours): - 10/22/24 08:08 10/22/24 08:12 10/22/24 09:02 Temperature 98.5 F Pulse Rate 65 65 67 Respiratory Rate 14 Blood Pressure 195/98 H 195/98 H 134/68 Pulse Oximetry 97 97 Oxygen Flow Rate 0 0 Oxygen Delivery Method Room Air Oxygen Flow Rate 0 Narrative Exam Narrative: GEN: Alert and oriented X3. No acute distress. Well-nourished. EYES: PERRLA, EOMI. HENT: Moist mucus membranes, no scleral icterus, normal neck ROM. RESP: Unlabored breathing, equal rise and fall of chest bilaterally, no cyanosis appreciated. CV: No peripheral edema, unremarkable heart rate. ABD: Soft, mildly distended, appropriately tender to palpation, incisions covered with dermabond and well approximated, right ileostomy pink and patent, productive of brown liquid, no guarding/rebound/rigidity. : Li catheter secured and draining clear red urine. EXT: No edema, clubbing or cyanosis. SKIN: No rashes or lesions. NEURO: No focal neurologic deficits, CN II-XII grossly intact. PSYCH: Cooperative, appropriate mood and affect. Objective Labs 10/21/24 08:20 10/21/24 08:20 [facility] Medical History Alcohol use disorder HLD (hyperlipidemia) FERNANDA (generalized anxiety disorder) CKD (chronic kidney disease) stage 3, GFR 30-59 ml/min Type 2 diabetes mellitus BPH w urinary obs/LUTS Belle esophagus DARLENE (obstructive sleep apnea) BPH (benign prostatic hyperplasia) Elevated PSA Chronic headache IFG (impaired fasting glucose) Benign essential HTN Surgical History Hx of umbilical hernia repair Hx of bilateral inguinal hernia repair Social History household members: spouse Smoking Status: Current some day smoker alcohol intake: current Assessment & Plan Post-op Postoperative Procedures: Procedures Operation Date: 10/18/24 07:45 Actual Procedure Side Surgeon p Robotic Radical Prostectomy, bilateral pelvic lymph node dissection and Robotic primary repair of distal rectal injury, Rigid proctoscopy, Diverting loop ileostomy Chino May DO Postoperative status: doing well Postoperative status narrative: 73 y/o M w/ 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 Unfortunately, his procedure was complicated by a 1cm rectal injury that required primary two layer closure with General Surgery and creation of diverting loop ileostomy. He is otherwise recovering as expected. - Li catheter will remain in place at discharge. Should it stop draining, please do not flush, call [facility] immediately - Ileostomy and diet care per Dr. Perez - Ambulate TID in the hallways, will continue with SCD's, IS while awake - Heparin TID Time Spent With Patient Time with patient: 15-24 minutes Quality VTE Deep Vein Thrombosis/Pulmonary Embolism Present on Admission: No
--- NOTE | 2024-10-22 11:46 | PC.NURSE ---
Per transitions manager general surgeon, Dr. Martinez, verbal order for the pt to follow up with wound care nurse in outpatient setting. Per wound care nurse note the pt is follow up with home health and at the clinic. Dr. May, aware of the pt's swollen penis and is OK with the pt discharging home. Per Doretha, in discharge planning, Dr. May needs to put in a discharge summary before the pt is able to be scheduled with Home health.
--- NOTE | 2024-10-22 12:20 | PT-IP ANOTE ---
checked on pt and pt refused PT. pt stated that he does not need PT and is going home today. spouse in room and agreed that pt does not need PT.
--- NOTE | 2024-10-22 12:53 | P.DS_ITS ---
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 Unfortunately, his procedure was complicated by a 1cm rectal injury that required primary two layer closure with General Surgery and creation of diverting loop ileostomy. He is otherwise recovering as expected. Discharge Providers Provider Date of admission: 10/18/24 18:32 Discharge Date: 10/22/24 Primary care physician: Gus Hsieh MD Consults: 10/19/24 12:08 Consult to Physical Therapy Evaluate & Treat Comment: Physician Instructions: Evaluate and Treat 10/21/24 11:26 Consult to Home Health Routine Comment: Reason For Exam: Home health services upon discharge Discharge provider: Chino May DO Summary Hospital Course Discharge Diagnosis: Prostate cancer Rectal Injury Hospital Course: He was admitted to the hospital on 18 October 2024 for a planned robotic assisted radical prostatectomy with bilaterlal pelvic lymph node dissection for management of his unfavorable intermediate-risk prostate cancer. Unfortunately, his procedure was complicated by a 1cm rectal injury that required primary two layer closure with General Surgery and creation of diverting loop ileostomy. His diet was slowly advanced to a regular diet and he began passing significant flatus with return of bowel function. He was discharged home on postoperative day 4. Status at Discharge Cognitive/behavioral status at discharge: at baseline, oriented Functional status at discharge: independent ambulation Overall status at discharge: patient is back to baseline Time Spent with Patient Time spent: Greater than 30 minutes Exam Vital Signs (past 8 hours): - 10/22/24 08:08 10/22/24 08:12 10/22/24 09:02 Temperature 98.5 F Pulse Rate 65 65 67 Respiratory Rate 14 Blood Pressure 195/98 H 195/98 H 134/68 Pulse Oximetry 97 97 Oxygen Flow Rate 0 0 Oxygen Delivery Method Room Air Oxygen Flow Rate 0 Narrative Exam Narrative: GEN: Alert and oriented X3. No acute distress. Well-nourished. EYES: PERRLA, EOMI. HENT: Moist mucus membranes, no scleral icterus, normal neck ROM. RESP: Unlabored breathing, equal rise and fall of chest bilaterally, no cyanosis appreciated. CV: No peripheral edema, unremarkable heart rate. ABD: Soft, mildly distended, appropriately tender to palpation, incisions covered with dermabond and well approximated, right ileostomy pink and patent, productive of brown liquid, no guarding/rebound/rigidity. : Pollack catheter secured and draining clear red urine. EXT: No edema, clubbing or cyanosis. SKIN: No rashes or lesions. NEURO: No focal neurologic deficits, CN II-XII grossly intact. PSYCH: Cooperative, appropriate mood and affect. Objective Labs 10/21/24 08:20 10/21/24 08:20 [facility] Medical History Alcohol use disorder HLD (hyperlipidemia) FERNANDA (generalized anxiety disorder) CKD (chronic kidney disease) stage 3, GFR 30-59 ml/min Type 2 diabetes mellitus BPH w urinary obs/LUTS Belle esophagus DARLENE (obstructive sleep apnea) BPH (benign prostatic hyperplasia) Elevated PSA Chronic headache IFG (impaired fasting glucose) Benign essential HTN Surgical History Hx of umbilical hernia repair Hx of bilateral inguinal hernia repair Social History household members: spouse Smoking Status: Current some day smoker alcohol intake: current Discharge Assessment & Plan Assessment and Plan Assessment: 73 y/o M w/ 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 Unfortunately, his procedure was complicated by a 1cm rectal injury that required primary two layer closure with General Surgery and creation of diverting loop ileostomy. He is otherwise recovering as expected. He will return to the Urology clinic on 27 October [address]ogram and possibly have his pollack catheter removed. Discharge Plan Discharge Plan Patient Disposition: Home Provider Discharge Comment: You may begin taking showers as soon as you get home. Please allow the soapy water to run over your incisions. Then pat your incisions dry when you get out of the shower. Please refrain from submerging your incisions in standing water for the next 3 weeks (pools, hot tubs, baths, oceans, leaks, etc..). The surgical grade superglue over your incision should slowly flake off on its own over the next 2-3 weeks. Please do not peel it off early, it would be very similar to removing a scab prior to it being ready to come off. I defer all wound care instructions regarding your ostomy to what you have been instructed by the General Surgery team. It is normal to have blood in your urine after the procedure. You may even pass large blood clots for the next several weeks. Expect to have periods of passage of blood clots and red urine which will then resolve after a few days and return to clear yellow urine. This is normal and part of the healing process of your bladder. As long as you are able to completely empty your bladder, it is okay. If you feel that you have to urinate and you are unable to empty your bladder, please go to the closest emergency room or contact our clinic for evaluation. It is important to refrain from heavy lifting (> 10 lbs) for the next six weeks. Please also avoid strenuous activities (running, elliptical machines, hiking, going to the gym). Please ensure that you have soft daily bowel movements for the next few weeks, you may purchase OTC Miralax and titrate the dosage as needed to achieve soft daily bowel movements. If you are discharged home with a pollack catheter, it is normal for the urine to switch between clear and red and even drain some blood clots. Some of the urine may also drain around the catheter, however, as long as the majority of the urine is draining through the catheter that is okay and to be expected. Should the catheter stop draining for an hour or more, please present to [facility] ER for evaluation after hours, or the Urology clinic during daylight hours. You have an appointment to return to the Urology clinic at 1500 on 27 Oct [address] results and hopefully have your catheter removed. You will be contacted by the Radiology department to coordinate the time for your CT to be performed earlier that morning. Should you have any questions or concerns after hours, please call the Exhibits Curator for [facility] at [phone]. They can relay any questions or concerns you have to the physician on-call. Discharge orders & Medications Prescriptions: New oxycodone 5 mg tablet 5 mg PO Q8H PRN (Reason: pain (scale score 7-10)) Qty: 14 0RF Continued rosuvastatin 20 mg tablet 10 mg PO Q OTHER DAY allopurinol 100 mg tablet 100 mg PO DAILY losartan 100 mg tablet 100 mg PO DAILY Qty: 90 3RF rizatriptan 10 mg tablet 10 mg PO PRN PRN (Reason: headache.) lorazepam 1 mg tablet 1 mg PO TID PRN (Reason: anxiety.) omeprazole magnesium [Prilosec OTC] 20 mg Tablet,Delayed Release (Dr/Ec) 20 mg PO BID triamterene-hydrochlorothiazid 37.5-25 mg tablet 1 tab PO QAM acetaminophen [Tylenol Extra Strength] 500 mg Tablet 1,000 mg PO BEDTIME disulfiram 250 mg Tablet 250 mg PO PRN PRN (Reason: cravings.) ibuprofen 200 mg Tablet 600 mg PO BEDTIME naproxen sodium [Aleve] 220 mg Capsule 220 mg PO BEDTIME PRN (Reason: pain.) calcium carbonate [Tums] 320 mg calcium (750 mg) Tablet,Chewable 750 mg PO BEDTIME Discontinued finasteride 5 mg tablet 5 mg PO DAILY tamsulosin 0.4 mg capsule 0.4 mg PO QPM Follow up/Referrals: Chino May DO [Physician, Urology] Gus Hsieh MD [Primary Care Provider, Internal Medicine] Diet/Activity/Treatments Diet comment: Dietary instructions as discussed by General Surgery team Catheter: 2-way Pollack Skin/Wound/Dressing Care Report to your healthcare provider any signs of infection, such as:: chills, fever, night sweats, increased pain and unusual drainage Visit Report/Discharge Packet Instructions: DI for Radical Prostatectomy, DI for Robot-assisted Prostatectomy Stand Alone Forms: Patient Portal/API, Stroke Signs & Symptoms Discharge Data Primary Care Provider: Gus Hsieh Quality VTE Deep Vein Thrombosis/Pulmonary Embolism Present on Admission: No [facility] PROFEE Charge Codes Discharge inpatient/observation: [id number]
--- NOTE | 2024-10-22 14:09 | CM.DPNOTE ---
Addendum entered by LUCY Galvez 10/22/24 15:29: ADD: Emailed signed Dc Summary to [facility]. Original Note: DC Note Patient has been discharged home w/family. Emailed [facility] with this update. Will plan to email the DC summary when it is available. start of care unknown, awaiting feedback from [facility]ana at [place]. RAUL
== END 2024-10-22 14:19 | disposition home health service (06) | DRG 331 ==
LOC: OR 10-19 15:17 → AC 10-19 15:17
PROVIDERS: Anesthesiology; Admitting Provider Urology; PCP Internal Medicine; Referring Provider Urology; Visit Provider Urology
PROC: 0VT04ZZ Resection of Prostate, Percutaneous Endoscopic Approach (ICD-10-PCS; CPT 55867; principal; 2024-10-18 07:45)
DX: K91.81 Other intraoperative complications of digestive system (principal); C61 Malignant neoplasm of prostate; N40.1 Benign prostatic hyperplasia with lower urinary tract symptoms; R35.1 Nocturia; R39.198 Other difficulties with micturition; F17.200 Nicotine dependence, unspecified, uncomplicated; E78.5 Hyperlipidemia, unspecified; I10 Essential (primary) hypertension; G44.89 Other headache syndrome; F41.1 Generalized anxiety disorder; Y83.8 Other surgical procedures as the cause of abnormal reaction of the patient, or of later complication, without mention of misadventure at the time of the procedure; Y92.234 Operating room of hospital as the place of occurrence of the external cause
CPT/HCPCS: 36415; 80048; 82962; 85025; 85027; 97162; C9250; J0131; J0330; J0690; J1100; J1171; J1644; J2405; J2543; J2704; J3010; J3490

== ENCOUNTER → 2024-10-25 11:52 | Outpatient (CLI) | payer OTHER, SELFPAY ==
[2024-10-18 20:17] VITALS: BMI 33.9
== END ==
LOC: WC 11:52
PROVIDERS: PCP Internal Medicine; Referring Provider Internal Medicine; Visit Provider Surgery
DX: K94.19 Other complications of enterostomy (principal); E78.5 Hyperlipidemia, unspecified; Z72.0 Tobacco use; F41.1 Generalized anxiety disorder; F10.90 Alcohol use, unspecified, uncomplicated; Z85.46 Personal history of malignant neoplasm of prostate; N18.30 Chronic kidney disease, stage 3 unspecified; E11.622 Type 2 diabetes mellitus with other skin ulcer; N40.1 Benign prostatic hyperplasia with lower urinary tract symptoms; M10.9 Gout, unspecified
CPT/HCPCS: 99203; 99213

== ENCOUNTER → 2024-10-27 08:51 | Outpatient (CLI) | payer OTHER, SELFPAY ==
[2024-10-18 20:17] VITALS: BMI 33.9
--- NOTE | 2024-10-27 09:00 | DI.CT.S_ITS ---
PROCEDURE: CT CYSTOGRAM INDICATIONS: 73 y/o M s/p radical prostatectomy with rectal injury TECHNIQUE: Both before and after gravity instillation of 10% Isovue contrast solution into the bladder through a Li catheter, 5 mm axial images acquired from the bladder dome to the symphysis. 5 mm thick coronal and sagittal reformats were acquired. For radiation dose reduction, the following was used: automated exposure control, adjustment of mA and/or kV according to patient size. COMPARISON: [facility], CT, CT CHEST ABD PEL W CON, 08/11/2024, 14:34. FINDINGS: Image quality: Diagnostic. Bladder: There is normal contrast distension of bladder lumen with Li catheter in place. Diffuse bladder wall thickening and [id number] perivesicular fat stranding is seen. No discrete bladder wall mass or intraluminal filling defects. No contrast extravasation is seen. No fistulous connection between the posterior wall of bladder and anterior wall of the rectum is seen. Distal Ureters: No abnormal distension superior PELVIS: Peritoneum and Bowel: Right-sided ostomy is seen. Thickened anterior rectal wall with mild adjacent perirectal fat stranding and close contact with posterior wall of urinary bladder is seen. Contrast opacified fistulous connection is noted. Rest of the visualized bowel loops shows no abnormal thickening. No evidence of bowel obstruction. No abscess collection. Pelvic Organs: No pelvic mass. Patient is status post radical prostatectomy. Pelvic Nodes: No enlarged lymph nodes. Miscellaneous: No inguinal hernias are seen. Bones: No aggressive osseous abnormality. IMPRESSION: 1. Diffuse bladder wall thickening with mild perivesicular fat stranding concerning for cystitis. No intraluminal filling defect. No discrete bladder wall mass. No contrast extravasation is seen. 2. Thickened anterior rectal wall closely associated with posterior inferior wall of urinary bladder without definite contrast opacified fistulous connection seen on the current study. No other area of abnormal bowel wall thickening. No abscess collection. No peritoneal free fluid or free air. 3. Postsurgical changes in anterior abdominal wall with right-sided ostomy in place. Dictated by: Tavo Ashley M.D. on 10/27/2024 at 9:40 Approved by: Tavo Ashley M.D. on 10/27/2024 at 9:46
== END ==
PROVIDERS: PCP Internal Medicine; Referring Provider Urology; Visit Provider Urology
DX: C61 Malignant neoplasm of prostate (principal); S36.60XA Unspecified injury of rectum, initial encounter
CPT/HCPCS: 72194; 99213; Q9967

== ENCOUNTER 2024-11-02 05:25 | Emergency (ER) | payer OTHER, SELFPAY ==
[2024-10-18 20:17] VITALS: BMI 33.9
[2024-11-02 05:35] VITALS: BP 173/79; PULSE 83; RESP 17; TEMP 37.1; O2SAT 95; BMI 33.3
--- NOTE | 2024-11-02 05:49 | ED.GENADULT ---
HPI - General Adult General Chief complaint: Urogenital-Male Stated complaint: Post prostate surgery complications, mucus Time Seen by Provider: 11/02/24 05:39 Source: patient Mode of arrival: Ambulatory History of Present Illness HPI narrative: 73-year-old gentleman now 2 weeks post radical prostatectomy followed by ileostomy. For the last 24 hours he has noticed clear fluid leaking from his anus. He is not having fevers chills or abdominal cramping. Yesterday he noted some tenesmus without any rectal output. He is concerned that over the last number of hours he is having small amounts of drainage almost hourly. Remainder of surgical sites seemed to be healing well, pain is adequately controlled, he is producing appropriate stool and otherwise recovering nicely from his recent radical prostatectomy Related Data Home Medications ?Medication ?Instructions ?Recorded ?Confirmed allopurinol 100 mg tablet 100 mg PO DAILY 04/03/23 10/27/24 rosuvastatin 20 mg tablet 10 mg PO Q OTHER DAY 04/03/23 10/27/24 acetaminophen 500 mg tablet 1,000 mg PO BEDTIME 10/12/24 10/27/24 (Tylenol Extra Strength) calcium carbonate (Tums) 750 mg PO BEDTIME 10/12/24 10/27/24 disulfiram 250 mg tablet 250 mg PO PRN PRN cravings. 10/12/24 10/27/24 ibuprofen 200 mg tablet 600 mg PO BEDTIME 10/12/24 10/27/24 lorazepam 1 mg tablet 1 mg PO TID PRN anxiety. 10/12/24 10/27/24 naproxen sodium 220 mg capsule 220 mg PO BEDTIME PRN pain. 10/12/24 10/27/24 (Aleve) omeprazole magnesium 20 mg 20 mg PO BID 10/12/24 10/27/24 tablet,delayed release (Prilosec OTC) rizatriptan 10 mg tablet 10 mg PO PRN PRN headache. 10/12/24 10/27/24 triamterene 37.5 1 tab PO QAM 10/12/24 10/27/24 mg-hydrochlorothiazide 25 mg tablet Previous Rx's ?Medication ?Instructions ?Recorded losartan 100 mg tablet 100 mg PO DAILY blood pressure #90 04/03/23 tabs oxycodone 5 mg tablet 5 mg PO Q8H PRN pain (scale score 10/22/24 7-10) #14 tabs Allergies Allergy/AdvReac Type Severity Reaction Status Date / Time No Known Drug Allergies Allergy Verified 10/18/24 07:17 Review of Systems Review of Systems Narrative: Pertinent positive and negative findings as per HPI Patient History Medical History Alcohol use disorder HLD (hyperlipidemia) FERNANDA (generalized anxiety disorder) CKD (chronic kidney disease) stage 3, GFR 30-59 ml/min Type 2 diabetes mellitus BPH w urinary obs/LUTS Belle esophagus DARLENE (obstructive sleep apnea) BPH (benign prostatic hyperplasia) Elevated PSA Chronic headache IFG (impaired fasting glucose) Benign essential HTN Surgical History Hx of umbilical hernia repair Hx of bilateral inguinal hernia repair Social History household members: spouse alcohol intake: current alcohol intake frequency: a few times a month Exam Initial Vital Signs Initial Vital Signs: Vital Signs Temperature 98.8 F 11/02/24 05:35 Pulse Rate 83 11/02/24 05:35 Respiratory Rate 17 11/02/24 05:35 Blood Pressure 173/79 H 11/02/24 05:35 Pulse Oximetry 95 11/02/24 05:35 Oxygen Delivery Method Room Air 11/02/24 05:35 General: Alert appropriate in no acute distress Respiratory: Able to speak in full sentences, no obvious respiratory distress Abdomen: Trocar sites and incision around the umbilicus are all healing nicely. No significant pain with palpation throughout the abdomen. Ostomy site is healing well and appears healthy. Appropriate stool output noted. Li catheter is in place with appropriate output Skin: No obvious rashes, warm and dry Neurologic: Grossly intact no obvious asymmetries or abnormalities Psych: appropriate insight and affect, cooperative Course Vital Signs Vital signs: Vital Signs - 8 hr 11/02/24 05:35 Temperature 98.8 F Pulse Rate 83 Respiratory Rate 17 Blood Pressure 173/79 H Pulse Oximetry 95 Oxygen Delivery Method Room Air Medical Decision Making MDM Narrative Medical decision making narrative: 73-year-old gentleman almost 2 weeks post radical prostatectomy with accidental incision into the rectum and subsequent diverting ileostomy presents concerned with increased clear mucus output from his anus over the last 24 hours. This is not associated with any pain or fevers. He describes noting a bit of tenesmus yesterday. Notes that he is having almost half a cup of debris that is come out of his rectum a number of times this evening. No blood in the output. Urine output is appropriate, perhaps a bit more sediment appreciated. While possibility of a colovesical fistula is possible, the probability is low. Case is discussed with Dr. Perez who did the diverting ileostomy. He will follow up with the patient later this week in clinic. At this point the mucus and debris being discharged is likely all within appropriate healing limits of recently diverted colon. Patient is reassured. Asked him to expect call from Dr. Perez for outpatient follow up this week. He is safe for discharge Discharge Plan Departure Patient Disposition: Home Clinical Impression: Rectal discharge Activity Restrictions/Additional Instructions: Thank you for coming in today Given the fact that you are not having significant abdominal pain, fevers, bloody urine, blood in your ostomy bag or the rectal discharge I suspect that the debris coming from your rectum is normal at this time. You still have your entire colon that is continuing to produce mucus as well as slough cells as part of general up keep an all of the debris still needs to come out. I do understand your concern for possibility of developing a fistula between your colon and bladder. While that is a possibility I think the probability is low. Your care was discussed with Dr. Perez, the surgeon who did the diverting ileostomy. Please do expect a call from his office to schedule a follow up appointment with him later this week If you have worsening signs symptoms, pain, fevers or new concerns please feel free to return to the ER Prescriptions: No Action rosuvastatin 20 mg tablet 10 mg PO Q OTHER DAY allopurinol 100 mg tablet 100 mg PO DAILY losartan 100 mg tablet 100 mg PO DAILY Qty: 90 3RF rizatriptan 10 mg tablet 10 mg PO PRN PRN (Reason: headache.) lorazepam 1 mg tablet 1 mg PO TID PRN (Reason: anxiety.) omeprazole magnesium [Prilosec OTC] 20 mg Tablet,Delayed Release (Dr/Ec) 20 mg PO BID triamterene-hydrochlorothiazid 37.5-25 mg tablet 1 tab PO QAM acetaminophen [Tylenol Extra Strength] 500 mg Tablet 1,000 mg PO BEDTIME disulfiram 250 mg Tablet 250 mg PO PRN PRN (Reason: cravings.) ibuprofen 200 mg Tablet 600 mg PO BEDTIME naproxen sodium [Aleve] 220 mg Capsule 220 mg PO BEDTIME PRN (Reason: pain.) calcium carbonate [Tums] 320 mg calcium (750 mg) Tablet,Chewable 750 mg PO BEDTIME oxycodone 5 mg tablet 5 mg PO Q8H PRN (Reason: pain (scale score 7-10)) Qty: 14 0RF Referrals: Gus Hsieh MD [Primary Care Provider, Internal Medicine] Stand Alone Forms: Patient Portal/API
== END 2024-11-02 06:26 | disposition home or self-care (01) ==
PROVIDERS: Emergency Provider Emergency Medicine; PCP Internal Medicine
DX: Z98.890 Other specified postprocedural states (principal); R19.8 Other specified symptoms and signs involving the digestive system and abdomen
CPT/HCPCS: 99281

== ENCOUNTER → 2024-11-04 09:26 | Outpatient (CLI) | payer OTHER, SELFPAY ==
[2024-10-18 20:17] VITALS: BMI 33.9
== END ==
LOC: WC 09:27
PROVIDERS: PCP Internal Medicine; Referring Provider Internal Medicine; Visit Provider Physician Assistant
DX: T83.038A Leakage of other urinary catheter, initial encounter (principal)
CPT/HCPCS: 99213

== ENCOUNTER → 2024-11-09 09:09 | Outpatient (CLI) | payer OTHER, SELFPAY ==
[2024-10-18 20:17] VITALS: BMI 33.9
--- NOTE | 2024-11-09 09:30 | DI.CT.S_ITS ---
PROCEDURE: CT CYSTOGRAM INDICATIONS: 73 y/o M w/ bladder leak on imaging, eval for healing TECHNIQUE: Both before and after gravity instillation of 10% Isovue contrast solution into the bladder through a Li catheter, 5 mm axial images acquired from the bladder dome to the symphysis. 5 mm thick coronal and sagittal reformats were acquired. For radiation dose reduction, the following was used: automated exposure control, adjustment of mA and/or kV according to patient size. COMPARISON: [facility], CT, CT CYSTOGRAM, 10/27/2024, 9:01. FINDINGS: Image quality: Diagnostic. Bladder: A Li catheter balloon is inflated in the bladder. There is a sizable fistula between the base of the bladder or prostatic urethra and the rectum, reference sagittal images 70 through 72 of series 5 and axial image 57 of series 3,, with extensive opacification of the rectum and sigmoid. There is also a small amount of extravasation which extends into the tissues between the base of bladder and rectum. Reference sagittal image 67. Distal Ureters: No abnormal distension. PELVIS: Peritoneum and Bowel: Bowel loops demonstrate normal wall thickness and caliber. No free fluid or air. Pelvic Organs: No pelvic mass. Pelvic Nodes: No enlarged lymph nodes. Miscellaneous: Enlarging oval fluid-filled structures to the right and left of the bladder likely representing enlarging urinoma is. The right-sided probable urinoma now measures 5.0 x 4.5 x 8.0 cm. The left-sided urinoma is small. Bones: No aggressive osseous abnormality. 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 2. There is also extravasation of contrast which does not extend into the rectum, but rather likely results in enlarging bilateral thin walled fluid collections subjacent to the bladder consistent with enlarging urinomas. Dictated by: Danyel Roblero M.D. on 11/09/2024 at 10:31 Approved by: Danyel Roblero M.D. on 11/09/2024 at 10:37
== END ==
PROVIDERS: PCP Internal Medicine; Referring Provider Urology; Visit Provider Urology
DX: S36.60XA Unspecified injury of rectum, initial encounter (principal); C61 Malignant neoplasm of prostate; N32.1 Vesicointestinal fistula
CPT/HCPCS: 72194; Q9967

== ENCOUNTER → 2024-11-09 11:29 | Outpatient (CLI) | payer OTHER, SELFPAY ==
[2024-10-18 20:17] VITALS: BMI 33.9
== END ==
PROVIDERS: PCP Internal Medicine; Referring Provider Internal Medicine; Visit Provider Surgery
DX: Z93.2 Ileostomy status (principal)
CPT/HCPCS: 99211

== ENCOUNTER → 2024-12-02 12:11 | Outpatient (CLI) | payer OTHER, SELFPAY ==
[2024-10-18 20:17] VITALS: BMI 33.9
[2024-12-02 12:26] LABS: Appearance Urine UA CLOUDY; Bilirubin Urine UA NEGATIVE (NEGATIVE); Color Urine UA YELLOW; Glucose Urine UA NEGATIVE (Negative); Ketones Urine UA NEGATIVE (NEGATIVE); Leukocyte Esterase Urine UA 3+ (NEGATIVE); Nitrite Urine UA POSITIVE (Negative); Occult Blood Urine UA 3+ (Negative); Protein Urine UA 3+ (Negative); Specific Gravity Urine UA 1.010 (1.000-1.035); Urobilinogen Urine UA 0.2 E.U./dL (0.2); pH Urine UA 7.5 (4.5-8.0)
[2024-12-02 12:27] LABS: Culture Indicated Urine Specimen Cultured
== END ==
PROVIDERS: PCP Internal Medicine; Visit Provider Urology
DX: N40.1 Benign prostatic hyperplasia with lower urinary tract symptoms (principal)
CPT/HCPCS: 81001; 87077; 87086; 87186

== ENCOUNTER → 2024-12-07 10:53 | Outpatient (CLI) | payer OTHER, SELFPAY ==
[2024-10-18 20:17] VITALS: BMI 33.9
== END ==
LOC: WC 10:56
PROVIDERS: PCP Internal Medicine; Referring Provider Internal Medicine; Visit Provider Surgery
DX: Z43.2 Encounter for attention to ileostomy (principal)
CPT/HCPCS: 99211

== ENCOUNTER 2025-02-01 10:13 | Emergency (ER) | payer OTHER, SELFPAY ==
[2024-10-18 20:17] VITALS: BMI 33.9
[2025-02-01 10:39] VITALS: BP 176/84; PULSE 79; RESP 17; TEMP 36.6; O2SAT 99
--- NOTE | 2025-02-01 11:02 | PC.NURSE ---
Pt arrives with the need of a new nephrostomy back or a nephrostomy cap. Advised that we do not carry such equipment in the ED. Call placed to the OR. spoke to OR propellant charge loader who came down to assess the equipment needed. Able to secure necessary equipment and changed and educated by [employer].
--- NOTE | 2025-02-01 11:11 | ED_ITS ---
<Statement entered by Ghulam Mendoza MD - 02/01/25 17:51> I was in the department and available for consultation at the time the patient was seen HPI - Recheck/Abnormal Lab/Rx General Chief Complaint: Recheck/Abnormal Lab/Rx Stated Complaint: Needs nephrostomy looked at Time Seen by Provider: 02/01/25 11:10 Source: patient Mode of arrival: Ambulatory History of Present Illness HPI narrative: Mr. Rivas is a pleasant 74-year-old male with a past medical history of prostatectomy on October 18 which resulted in bilateral nephrostomies, catheter, stoma with ostomy bag, who presents to the ER today as advsied by urologist Dr. May for replacement cap for left nephrostomy tube which has been leaking. OR staff was called down to the ER and was able to replace the piece needed with the patient's nephrostomy tube and in his now functioning appropriately. Patient denies any other concerns, fevers, chills, pain. Related Data Home Medications ?Medication ?Instructions ?Recorded ?Confirmed allopurinol 100 mg tablet 100 mg PO DAILY 04/03/2301/09 rosuvastatin 20 mg tablet 10 mg PO Q OTHER DAY 3 01/23/25 acetaminophen 500 mg tablet 1,000 mg PO BEDTIME 01/23/25 (Tylenol Extra Strength) calcium carbonate (Tums) 750 mg PO BEDTIME 10/12/24 0 01/23/25 disulfiram 250 mg tablet 250 mg PO PRN PRN cravings. 10/12/24 01/23/25 ibuprofen 200 mg tablet 600 mg PO BEDTIME 10/12/24 0 01/23/25 lorazepam 1 mg tablet 1 mg PO TID PRN anxiety. 01/23/25 naproxen sodium 220 mg capsule 220 mg PO BEDTIME PRN p ain. 10/12/24 01/23/25 (Aleve) omeprazole magnesium 20 mg 20 mg PO BID 10/12/2401/23 tablet,delayed release (Prilosec OTC) rizatriptan 10 mg tablet 10 mg PO PRN PRN headache. 0 10/12/24 01/23/25 triamterene 37.5 1 tab PO QAM 05/28/25 09/08/ 25 mg-hydrochlorothiazide 25 mg tablet nitrofurantoin macrocrystal 100 mg 100 mg PO BID 11/2301/23/25 capsule Previous Rx's ?Medication ?Instructions ?Recorded losartan 100 mg tablet 100 mg PO DAILY blood pressu re #90 04/03/23 tabs oxycodone 5 mg tablet 5 mg PO Q8H PRN pain (scale score 11/23/24 7-10) #10 tabs Allergies Allergy/AdvReac Type Severity Reaction Status Date / Time No Known Drug Allergies Allergy Verified 02/01/25 10:39 Review of Systems Review of Systems ROS Unobtainable: All systems reviewed & are unremarkable except as noted in HPI and below Patient History Medical History Alcohol use disorder HLD (hyperlipidemia) FERNANDA (generalized anxiety disorder) CKD (chronic kidney disease) stage 3, GFR 30-59 ml/min Type 2 diabetes mellitus BPH w urinary obs/LUTS Belle esophagus DARLENE (obstructive sleep apnea) BPH (benign prostatic hyperplasia) Elevated PSA Chronic headache IFG (impaired fasting glucose) Benign essential HTN Surgical History Hx of umbilical hernia repair Hx of bilateral inguinal hernia repair Social History household members: spouse alcohol intake: current alcohol intake frequency: a few times a month Exam Narrative Exam Narrative: GENERAL: 74 year old patient appears stated age. Well-developed patient, in no acute distress. HEAD: Atraumatic. Normocephalic. NECK: Trachea midline. Cervical ROM intact. CARDIOVASCULAR: Regular rate RESPIRATORY: ?Nonlabored respirations. ?Speaking in clear, full sentences. ? BACK: Left nephrotomy tube cap replaced by OR staff with resolution of leaking. Tube site without erythema, tenderness, or skn drainage. NEURO: AOx3. ?Clear speech. ?Moves all 4 extremities appropriately. SKIN: No rash or erythema of visible areas Initial Vital Signs Initial Vital Signs: Vital Signs Temperature 98 F 02/01/25 10:39 Pulse Rate 79 02/01/25 10:39 Respiratory Rate 17 02/01/25 10:39 Blood Pressure 176/84 H 02/01/25 10:39 Pulse Oximetry 99 02/01/25 10:39 Oxygen Delivery Method Room Air 02/01/25 10:39 Course Vital Signs Vital signs: Vital Signs - 8 hr 02/01/25 10:39 Temperature 98 F Pulse Rate 79 Respiratory Rate 17 Blood Pressure 176/84 H Pulse Oximetry 99 Oxygen Delivery Method Room Air MDM - Recheck/Abnormal Lab/Rx Medical Records Attestation: I reviewed the patient's medical records. [facility] Narrative Medical decision making narrative: 74-year-old male with a past medical history of prostatectomy on October 18 which resulted in bilateral nephrostomies, catheter, stoma with ostomy bag, who presents to the ER today as advsied by urologist Dr. May for replacement cap for left nephrostomy tube which has been leaking. Differential diagnosis includes but is not leaking to tube equipment failure, obstruction, etc. On exam patient is in no acute distress, nontoxic appearing not febrile tachycardic or hypoxic. He needs a new nephrostomy tube cap however this piece of equipment is not in the ER, so the OR team was called in the OR charge nurse was able to come down replaced the cap with resolution of the patient's problem. He denies any other symptoms or concerns. Advised follow up with Urology, discussed ED return precautions. Patient verbalized understanding of all information is happy with the plan, he is stable for discharge home. Discharge Plan Departure Patient Disposition: Home Clinical Impression: Attention to nephrostomy Instructions: DI for Nephrostomy Activity Restrictions/Additional Instructions: Dear Layla Rivas, Thank you for coming to the emergency department. Today the OR nurses were able to replace a piece on your nephrostomy tube to stop the leak. I am very happy that is functioning appropriately now. Please follow up with your urologist as needed, return to the ER for any fevers, chills, pain or other concerns. Please follow up with your primary care doctor within the next 2-3 days for ER follow-up. (If you do not have a PCP you can call [phone]. ?to schedule an appointment with an [facility] Primary Care Provider) IF YOU DEVELOP ANY NEW OR WORSENING SYMPTOMS, RETURN TO THE ER! Please read the attached instructions, they highlight more specific treatments and interventions for you at home. Thank you for letting me participate in your care, Ceci Huynh PA-C Prescriptions: No Action rosuvastatin 20 mg tablet 10 mg PO Q OTHER DAY allopurinol 100 mg tablet 100 mg PO DAILY losartan 100 mg tablet 100 mg PO DAILY Qty: 90 3RF rizatriptan 10 mg tablet 10 mg PO PRN PRN (Reason: headache.) lorazepam 1 mg tablet 1 mg PO TID PRN (Reason: anxiety.) omeprazole magnesium [Prilosec OTC] 20 mg Tablet,Delayed Release (Dr/Ec) 20 mg PO BID triamterene-hydrochlorothiazid 37.5-25 mg tablet 1 tab PO QAM acetaminophen [Tylenol Extra Strength] 500 mg Tablet 1,000 mg PO BEDTIME disulfiram 250 mg Tablet 250 mg PO PRN PRN (Reason: cravings.) ibuprofen 200 mg Tablet 600 mg PO BEDTIME naproxen sodium [Aleve] 220 mg Capsule 220 mg PO BEDTIME PRN (Reason: pain.) calcium carbonate [Tums] 320 mg calcium (750 mg) Tablet,Chewable 750 mg PO BEDTIME nitrofurantoin macrocrystal 100 mg capsule 100 mg PO BID Rx Instructions: must administer with a meal/food oxycodone 5 mg tablet 5 mg PO Q8H PRN (Reason: pain (scale score 7-10)) Qty: 10 0RF Referrals: Gus Hsieh MD [Primary Care Provider, Internal Medicine] Stand Alone Forms: Patient Portal/API
== END 2025-02-01 11:29 | disposition home or self-care (01) ==
PROVIDERS: Emergency Provider Physician Assistant; PCP Internal Medicine
DX: Z43.6 Encounter for attention to other artificial openings of urinary tract (principal)
CPT/HCPCS: 99281

== ENCOUNTER → 2025-02-07 11:07 | Outpatient (CLI) | payer OTHER, SELFPAY ==
[2024-10-18 20:17] VITALS: BMI 33.9
[2025-02-07 13:19] LABS: Appearance Urine UA CLEAR; Bilirubin Urine UA NEGATIVE (NEGATIVE); Color Urine UA YELLOW; Glucose Urine UA NEGATIVE (Negative); Ketones Urine UA NEGATIVE (NEGATIVE); Leukocyte Esterase Urine UA 3+ (NEGATIVE); Nitrite Urine UA NEGATIVE (Negative); Occult Blood Urine UA 2+ (Negative); Protein Urine UA NEGATIVE (Negative); Specific Gravity Urine UA 1.010 (1.000-1.035); Urobilinogen Urine UA 0.2 E.U./dL (0.2); pH Urine UA 8.5 (4.5-8.0)
[2025-02-07 13:50] LABS: Culture Indicated Urine Specimen Cultured
== END ==
PROVIDERS: PCP Internal Medicine; Visit Provider Urology
DX: R39.9 Unspecified symptoms and signs involving the genitourinary system (principal)
CPT/HCPCS: 81001; 87077; 87086; 87186

== ENCOUNTER → 2025-02-14 08:30 | Outpatient (CLI) | payer OTHER, SELFPAY ==
[2024-10-18 20:17] VITALS: BMI 33.9
--- NOTE | 2025-02-14 08:31 | DI.CT.S_ITS ---
PROCEDURE: CT CYSTOGRAM INDICATIONS: 74 y/o M w/ h/o prostate cancer who has urethrorectal fistul TECHNIQUE: Both before and after gravity instillation of 10% Isovue contrast solution into the bladder through a Li catheter, 5 mm axial images acquired from the bladder dome to the symphysis. 5 mm thick coronal and sagittal reformats were acquired. For radiation dose reduction, the following was used: automated exposure control, adjustment of mA and/or kV according to patient size. COMPARISON: [facility], CT, CT CYSTOGRAM, 11/09/2024, 9:18. FINDINGS: Image quality: Diagnostic. Prior to injection of contrast within the bladder, there is hyperattenuating stool noted within the rectum and sigmoid colon. Bladder: Li catheter within the urinary bladder. No extraluminal contrast noted . Distal Ureters: No abnormal distension. PELVIS: Peritoneum and Bowel: Bowel loops demonstrate normal wall thickness and caliber. No free fluid or air. Prior partial colectomy, surgical anastomosis along the anterior pelvis. Right lower quadrant diverting ileostomy. Pelvic Organs: No pelvic mass. Pelvic Nodes: No enlarged lymph nodes. Miscellaneous: No inguinal hernias are seen. Bones: No aggressive osseous abnormality. IMPRESSION: Resolved proctovesicular fistula. Dictated by: Bill Amanda M.D. on 02/14/2025 at 11:32 Approved by: Bill Amanda M.D. on 02/14/2025 at 11:34
== END ==
LOC: CT 08:31
PROVIDERS: PCP Internal Medicine; Referring Provider Internal Medicine; Visit Provider Urology
DX: C61 Malignant neoplasm of prostate (principal); N36.0 Urethral fistula
CPT/HCPCS: 72194; Q9967

== ENCOUNTER → 2025-02-27 14:38 | Outpatient (CLI) | payer OTHER, SELFPAY ==
[2024-10-18 20:17] VITALS: BMI 33.9
== END ==
PROVIDERS: PCP Internal Medicine; Visit Provider Urology
DX: N40.1 Benign prostatic hyperplasia with lower urinary tract symptoms (principal)
CPT/HCPCS: 87086

== ENCOUNTER → 2025-03-02 10:19 | Outpatient (CLI) | payer OTHER, SELFPAY ==
[2024-10-18 20:17] VITALS: BMI 33.9
== END ==
PROVIDERS: Family Provider Internal Medicine; PCP Internal Medicine; Referring Provider Urology; Visit Provider Physician Assistant
DX: Z93.2 Ileostomy status (principal)
CPT/HCPCS: 99212; 99213